=== PATIENT | male | born 1965 | race African-American/Black ===

== ENCOUNTER 2018-09-26 04:41 | Inpatient (IN) ==
[2018-09-26] MEDS ORDERED: ceFAZolin 2 GM Premix Inj 2 GM/50 ML PIGGYBACK IV.SIG ONE (04:46)
[2018-09-26 05:02] LABS: Baso % (Auto) 0.4 % (0.0-2.0); Eos # (Auto) 0.1 th/mm3 (0.0-0.4); Hematocrit 38.1 % (39.0-51.0); Hemoglobin 12.9 gm/dL (13.0-17.0); Lymph # (Auto) 1.9 th/mm3 (1.0-4.8); Lymph % (Auto) 17.3 % (9.0-44.0); Mean Corpuscular HGB Conc 33.9 % (32.0-36.0); Mean Corpuscular Hemoglobin 28.5 pg (27.0-34.0); Mean Platelet Volume 8.2 fL (7.0-11.0); Mono # (Auto) 0.7 th/mm3 (0.0-0.9); Mono % (Auto) 5.9 % (0.0-8.0); Neut # (Auto) 8.4 th/mm3 (1.8-7.7); Neut % (Auto) 75.4 % (16.0-70.0); Platelet Count 224 th/mm3 (150-450); Red Blood Count 4.54 mil/mm3 (4.50-5.90); Red Cell Distribution Width 14.6 % (11.6-17.2); White Blood Count 11.1 th/mm3 (4.0-11.0)
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
[2018-09-26 05:21] LABS: Activated Partial Thrombo Time 21.1 sec (23.4-31.7); INR 1.2 Ratio; Prothrombin Time 11.7 sec (9.8-11.6)
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
[2018-09-26] MEDS ORDERED: Bisacodyl 10 MG Supp RECTAL PRN (05:39)
[2018-09-26] MEDS ORDERED: Morphine Sulfate Inj 2 MG/ML Vial IV.PUSH PRN (05:39)
[2018-09-26] MEDS ORDERED: Naloxone Inj 0.4 MG/ML Vial IV.PUSH PRN (05:39)
[2018-09-26] MEDS ORDERED: Post-op Orders (for Pharmacy) OTHER ONE (05:39)
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
[2018-09-26] MEDS: Sod Chloride 0.9% Inj 1,000 ML IV.CONT SCH ×2 (06:06→18:26)
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
[2018-09-26] MEDS: Famotidine 20 MG Tablet PO SCH ×2 (09:46→21:13)
[2018-09-26] MEDS: Senna/Docusate Sodium 8.6/50 MG Tablet PO SCH ×2 (09:47→21:13)
[2018-09-26] MEDS ORDERED: Sodium Chlor 0.9% Inj 500 ML IV.CONT ONE (10:45)
[2018-09-26] MEDS ORDERED: Metoprolol Tartrate 25 MG Tablet PO ONE (10:45)
[2018-09-26] MEDS ORDERED: Chlorhexidine Gluconate 2% 1 Pack (2 Cloths) TOPICAL ONE (10:45)
[2018-09-26] MEDS ORDERED: ceFAZolin 1 GM Premix Inj 2 GM/100 ML PIGGYBACK IV.SIG ONE (11:02)
[2018-09-26] MEDS ORDERED: Ketamine Inj 50 MG/5 ML Syringe IV.PUSH ONE (11:41)
[2018-09-26] MEDS ORDERED: Phenylephrine/NS 1000 MCG/10ML Syringe IV.PUSH ONE (12:12)
[2018-09-26] MEDS ORDERED: Neostigmine Inj 5 MG/5 ML Syringe IV.PUSH ONE (12:12)
[2018-09-26] MEDS ORDERED: Glycopyrrolate Inj 1 MG/5 ML Syringe IV.PUSH ONE (12:12)
[2018-09-26] MEDS ORDERED: Ketorolac Inj 30 MG/ML (IVP) Vial IV.PUSH ONE (12:12)
[2018-09-26] MEDS ORDERED: Lidocaine PF 1% Inj 5 ML Syringe OTHER ONE (12:12)
[2018-09-26] MEDS ORDERED: Albumin Human 25% Inj 50 ML IV.SIG ONE (12:55)
[2018-09-26] MEDS ORDERED: Sodium Chlor 0.9% Inj 50 ML ONE (12:55)
[2018-09-26] MEDS ORDERED: ceFAZolin 1 GM Premix Inj 1 GM/50 ML PIGGYBACK IV.SIG SCH (13:00)
[2018-09-26] MEDS ORDERED: Post-op Orders (for Pharmacy) OTHER STA (14:56)
[2018-09-26] MEDS ORDERED: Morphine Inj 4 MG/ML Vial IV.PUSH PRN (14:56)
[2018-09-26] MEDS ORDERED: ceFAZolin Inj 2,000 MG in Sodium Chlor 0.9% Inj 80 ML IV.SIG SCH (15:00)
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
[2018-09-26] MEDS ORDERED: fentaNYL Citrate Inj 100 MCG/2 ML Ampul ONE (16:02)
[2018-09-26] MEDS ORDERED: *Meperidine Inj 25 MG/ML Vial PERIprocedural Use ONLY ONE (16:28)
[2018-09-26] MEDS: Ketorolac Inj 30 MG/ML (IVP) Vial IV.PUSH SCH ×2 (17:28→22:44)
[2018-09-26] MEDS: Calcium/Vitamin D 250/125 MG Tablet PO SCH (17:50)
--- NOTE | 2018-09-26 19:29 | XR ---
EXAM DATE: 09/26/2018 7:15 PM EST AGE/SEX: 52 years / Male INDICATIONS: Surgical repair, left ankle. CLINICAL DATA: This is the patient's initial encounter. Patient reports that signs and symptoms have been present for 1 day and indicates a pain score of Nonresponsive. MEDICAL/SURGICAL HISTORY: Non-responsive. Non-responsive. COMPAR[place]: [facility] [place]/O [place], 09/26/2018. . FINDINGS: There is a very comminuted intra-articular fracture of the distal tibia again noted status post exter nal fixation. Main fracture fragments are in near-anatomic alignment. CONCLUSION: External fixation of the comminuted distal tibia fracture. Near-anatomic alignment of the main fracture fragments. Electronically signed by: Bharat Segura MD 09/26/2018 7:27 PM EST
--- NOTE | 2018-09-26 19:30 | XR ---
EXAM DATE: 09/26/2018 7:15 PM EST AGE/SEX: 52 years / Male INDICATIONS: Surgical repair. CLINICAL DATA: This is the patient's initial encounter. Patient reports that signs and symptoms have been present for 1 day and indicates a pain score of Nonresponsive. MEDICAL/SURGICAL HISTORY: Non-responsive. Non-responsive. COMPARISON: [facility] [place] [place] 2V, 09/26/[place]. . FINDINGS: Interim screw and plate fixation of the mid shaft fractures of the left radius and ulna. Also interim screw and plate fixation of the distal ulnar fracture. Alignment of all 3 fractures is near-anatomic . No evidence of an acute complication. CONCLUSION: Screw plate fixation of mid shaft fracture of the radius and mid shaft and distal shaft fracturing of the ulna, all in near-anatomic alignment. Electronically signed by: Bharat Segura MD 09/26/2018 7:28 PM EST
[2018-09-26] MEDS: ceFAZolin 2 GM Premix Inj 2 GM/50 ML PIGGYBACK IV.SIG SCH (21:12)
[2018-09-26] MEDS: Gentamicin/NS 80 mg Premix 100 ML IV.SIG SCH (21:12)
[2018-09-27 03:54] LABS: Hematocrit 27.1 % (39.0-51.0); Hemoglobin 9.2 gm/dL (13.0-17.0); Lymph # (Auto) 0.6 th/mm3 (1.0-4.8); Lymph % (Auto) 9.8 % (9.0-44.0); Mean Corpuscular HGB Conc 34.1 % (32.0-36.0); Mean Corpuscular Hemoglobin 28.9 pg (27.0-34.0); Mean Corpuscular Volume 84.6 fL (80.0-100.0); Mean Platelet Volume 8.2 fL (7.0-11.0); Mono # (Auto) 0.4 th/mm3 (0.0-0.9); Mono % (Auto) 7.1 % (0.0-8.0); Neut # (Auto) 5.2 th/mm3 (1.8-7.7); Neut % (Auto) 83.1 % (16.0-70.0); Platelet Count 192 th/mm3 (150-450); Red Cell Distribution Width 14.6 % (11.6-17.2); White Blood Count 6.2 th/mm3 (4.0-11.0)
[2018-09-27] MEDS: Sod Chloride 0.9% Inj 1,000 ML IV.CONT SCH (04:20)
[2018-09-27 04:21] LABS: Calcium 7.5 mg/dL (8.5-10.1); Carbon Dioxide 25.8 meq/L (21.0-32.0); Potassium 4.1 meq/L (3.5-5.1)
[2018-09-27] MEDS: ceFAZolin 2 GM Premix Inj 2 GM/50 ML PIGGYBACK IV.SIG SCH ×3 (06:30→20:42)
[2018-09-27] MEDS: Ketorolac Inj 30 MG/ML (IVP) Vial IV.PUSH SCH ×3 (06:31→23:45)
[2018-09-27] MEDS: Gentamicin/NS 80 mg Premix 100 ML IV.SIG SCH ×3 (06:31→21:19)
[2018-09-27] MEDS: Senna/Docusate Sodium 8.6/50 MG Tablet PO SCH ×2 (08:15→20:42)
[2018-09-27] MEDS: Verapamil SR 240 MG Tablet PO SCH ×2 (08:15→11:00)
[2018-09-27] MEDS: hydroCHLOROthiazide 25 MG Tablet PO SCH (08:15)
[2018-09-27] MEDS: Calcium/Vitamin D 250/125 MG Tablet PO SCH ×3 (08:15→18:23)
[2018-09-27] MEDS: Famotidine 20 MG Tablet PO SCH ×2 (08:15→20:42)
[2018-09-27] MEDS: VERAPAMIL 240 MG PO SCH (11:12)
[2018-09-27] MEDS: Enoxaparin Inj 30 MG/0.3 ML Syringe SQ SCH ×2 (11:12→23:47)
[2018-09-27] MEDS: Lidocaine 5% Patch T-DERMAL SCH (11:15)
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
[2018-09-27] MEDS ORDERED: Rivaroxaban 10 MG Tablet PO SCH (15:00)
--- NOTE | 2018-09-27 15:13 | P.PNOP ---
Subjective Interval history: Patient c/o left sided rib pain. LUE and LLE pain is controlled. NAD. Physical Exam Vital signs: Vital Signs 09/26/18 15:50 09/26/18 16:00 09/26/18 16:15 Temperature 97 F L Pulse Rate 72 73 76 Respiratory Rate 15 14 20 Blood Pressure 121/61 112/73 133/80 Pulse Oximetry 98 98 98 09/26/18 16:30 09/26/18 16:40 09/26/18 17:15 Temperature 97.5 F L 98.1 F Pulse Rate 74 80 79 Respiratory Rate 18 17 16 Blood Pressure 132/85 130/81 129/78 Pulse Oximetry 96 100 99 09/26/18 20:27 09/26/18 22:38 09/26/18 23:44 Temperature 97.5 F L 98.9 F Pulse Rate 85 98 H Respiratory Rate 16 17 Blood Pressure 94/59 L 116/81 Pulse Oximetry 97 96 97 09/27/18 04:28 09/27/18 08:00 09/27/18 11:15 Temperature 98.2 F 98.2 F Pulse Rate 92 H 92 H Respiratory Rate 17 20 18 Blood Pressure 114/67 144/64 H Pulse Oximetry 97 98 09/27/18 12:00 Temperature 98.2 F Pulse Rate 100 H Respiratory Rate 20 Blood Pressure 105/52 L Pulse Oximetry 99 Intake & Output 09/26/18 09/27/18 09/27/18 18:59 06:59 18:59 Intake Total 2750 / 2750 2240 / 2240 400 / 400 Output Total 1650 / 1650 725 / 725 Balance 1100 / 1100 1515 / 1515 400 / 400 Weight 129.6 kg Intake: IV 1100 / 1100 1250 / 1250 400 / 400 NS Inj 1,000 ML @ 100 mls/hr IV 1000 / 1000 1000 / 1000 200 / 200 .CONT .Q10H [facility] Rx#:[id number] Ofirmev Inj 1,000 mg In 100 ml 100 / 100 100 / 100 @ 400 mls/hr IV.SIG Q6H [facility] Rx# :[id number] Gentamicin/NS 80 mg Premix 100 100 / 100 100 / 100 ML @ 200 mls/hr IV.SIG Q8H [facility] Rx#:[id number] Ancef 2 GM Premix Inj 2 gm In 50 / 50 100 / 100 50 ml @ 100 mls/hr IV.SIG Q8H [facility] Rx#:[id number] Oral 990 / 990 Anesthesia Amount 1650 / 1650 Output: Urine 725 / 725 Estimated Blood Loss 1650 / 1650 Other: # Bowel Movements 0 Narrative: LUE posterior splint and sling in place good movement of digits + sensation LLE ex fix intact moderate drainage to the anterior pin good movement of toes + sensation 2+ dorsalis pedis pulses Left ribs tenderness with direct palpation skin intact Results - Labs CBC & Chem 7: 09/27/18 03:36 09/27/18 03:36 Laboratory Results - last 24 hr 09/27/18 09/27/18 03:36 03:36 WBC 6.2 RBC 3.20 L Hgb 9.2 L D Hct 27.1 L MCV 84.6 MCH 28.9 MCHC 34.1 RDW 14.6 Plt Count 192 MPV 8.2 Neut % (Auto) 83.1 H Lymph % (Auto) 9.8 [place] % (Auto) 7.1 Eos % (Auto) 0.0 Baso % (Auto) 0.0 Neut # (Auto) 5.2 Lymph # (Auto) 0.6 L [place] # (Auto) 0.4 Eos # (Auto) 0.0 Baso # (Auto) 0.0 WBC Differential . Differential Comment Auto diff final Sodium 137 Potassium 4.1 Chloride 104 Carbon Dioxide 25.8 Anion Gap 7 BUN 16 Creatinine 1.40 H Estimated GFR 64 L Random Glucose 117 H Calcium 7.5 L - Imaging Impressions Ankle X-Ray 09/26/18 00:00 CONCLUSION: External fixation of the comminuted distal tibia fracture. Near- anatomic alignment of the main fracture fragments. Forearm X-Ray 09/26/18 00:00 CONCLUSION: Screw plate fixation of mid shaft fracture of the radius and mid shaft and distal shaft fracturing of the ulna, all in near-anatomic alignment. Assessment and Plan - Assessment and Plan Patient is postop day #1 status post closed reduction and external fixation left distal tibia and fibula fractures, open reduction internal fixation left radius and ulna shaft fractures, and irrigation and debridement with open reduction internal fixation left ulna styloid fractures Elevate left foot and left arm Physical therapy: Nonweightbearing left arm and left foot SCD, Serene Ureña Will need ORIF left distal tibia/fibula when swelling has improved Monitor.
--- NOTE | 2018-09-27 17:30 | ECG ---
Date Performed: 09/26/2018 Time Performed: 10:35:50 PTAGE: 52 years EKG: Sinus rhythm NONSPECIFIC ST ELEVATION BORDERLINE ECG INTERPRETATION BASED ON A DEFAULT AGE OF 38 YEARS NO PREVIOUS TRACING DOCTOR: Liliana Castillo Interpretating Date/Time 09/27/2018 17:24:23
[2018-09-28] MEDS: ceFAZolin 2 GM Premix Inj 2 GM/50 ML PIGGYBACK IV.SIG SCH ×2 (04:56→12:44)
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
[2018-09-28] MEDS: Gentamicin/NS 80 mg Premix 100 ML IV.SIG SCH ×2 (06:11→13:35)
[2018-09-28] MEDS: Ketorolac Inj 30 MG/ML (IVP) Vial IV.PUSH SCH (06:11)
[2018-09-28] MEDS: Calcium/Vitamin D 250/125 MG Tablet PO SCH ×3 (08:09→17:33)
[2018-09-28] MEDS: Lidocaine 5% Patch T-DERMAL SCH (08:10)
[2018-09-28] MEDS: Famotidine 20 MG Tablet PO SCH ×2 (08:10→20:37)
[2018-09-28] MEDS: Senna/Docusate Sodium 8.6/50 MG Tablet PO SCH ×2 (08:11→20:37)
[2018-09-28 08:35] LABS: Hematocrit 24.1 % (39.0-51.0); Hemoglobin 8.2 gm/dL (13.0-17.0)
[2018-09-28 10:36] LABS: Calcium 7.7 mg/dL (8.5-10.1); Potassium 3.8 meq/L (3.5-5.1)
[2018-09-28] MEDS: hydroCHLOROthiazide 25 MG Tablet PO SCH (11:22)
[2018-09-28] MEDS: HYDROmorphone PF Inj 0.5 MG/0.5 ML Syringe IV.PUSH PRN ×3 (12:43→20:38)
[2018-09-28] MEDS: Enoxaparin Inj 30 MG/0.3 ML Syringe SQ SCH ×2 (12:44→22:36)
[2018-09-28] MEDS: VERAPAMIL 240 MG PO SCH ×2 (12:44→16:20)
[2018-09-28] MEDS: Gabapentin 300 MG Capsule PO SCH ×2 (12:45→17:33)
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
[2018-09-28] MEDS: Sod Chloride 0.9% Inj 1,000 ML IV.CONT SCH ×2 (13:34→23:32)
--- NOTE | 2018-09-28 19:41 | P.PNOP ---
Subjective Interval history: The patient is comfortable. The therapist reports that he was able to get out of bed yesterday. However, today when they attempted to get him out of bed he was having difficulty balancing on the right leg and he was having intent to put more weight through the external fixator which the therapist was holding and therefore they did not get up to the chair. Physical Exam Vital signs: Vital Signs 09/27/18 20:00 09/27/18 23:50 09/28/18 00:00 Temperature 98.0 F Pulse Rate 82 89 89 Respiratory Rate 19 Blood Pressure 107/57 L Pulse Oximetry 92 L 92 L 09/28/18 04:10 09/28/18 04:15 09/28/18 04:20 Temperature 98.1 F Pulse Rate 84 86 Respiratory Rate 18 Blood Pressure 104/57 L Pulse Oximetry 88 L 93 L 09/28/18 08:00 09/28/18 10:48 09/28/18 11:20 Temperature 98.4 F Pulse Rate 103 H Respiratory Rate 18 18 16 Blood Pressure 107/57 L Pulse Oximetry 96 09/28/18 12:00 09/28/18 13:34 09/28/18 16:27 Temperature 98.4 F 98.5 F Pulse Rate 105 H 100 H Respiratory Rate 20 16 18 Blood Pressure 138/73 131/61 Pulse Oximetry 97 09/28/18 17:30 09/28/18 17:33 Temperature Pulse Rate Respiratory Rate 18 18 Blood Pressure Pulse Oximetry Intake & Output 09/28/18 09/28/18 09/29/18 06:59 18:59 06:59 Intake Total 1900 / 1900 1130 / 1130 Output Total 500 / 500 Balance 1900 / 1900 630 / 630 Weight 129.6 kg Intake: IV 1300 / 1300 150 / 150 LR 1000 mL Inj 1,000 ML @ 30 1000 / 1000 mls/hr IV.CONT .Q24H [facility] Rx#: [id number] Gentamicin/NS 80 mg Premix 100 200 / 200 100 / 100 ML @ 200 mls/hr IV.SIG Q8H [facility] Rx#:[id number] Ancef 2 GM Premix Inj 2 gm In 100 / 100 50 / 50 50 ml @ 100 mls/hr IV.SIG Q8H [facility] Rx#:[id number] Oral 600 / 600 980 / 980 Output: Urine 500 / 500 Other: # Voids 3 2 Date of Last Bowel Movement 09/26/18 09/26/18 # Bowel Movements 0 Narrative: Left lower extremity with external fixator in place. Dressings appear clean. Left upper extremity splint dressing in place. Motor sensory neurologic examination intact both extremities. Results - Labs CBC & Chem 7: 09/28/18 07:47 09/28/18 09:50 Laboratory Results - last 24 hr 09/28/18 09/28/18 07:47 09:50 Hgb 8.2 L Hct 24.1 L Sodium 136 Potassium 3.8 Chloride 103 Carbon Dioxide 27.0 Anion Gap 6 BUN 36 H Creatinine 1.62 H Estimated GFR 54 L Random Glucose 104 Calcium 7.7 L - Imaging Impressions Chest X-Ray 09/28/18 00:00 CONCLUSION: Basilar atelectasis. Assessment and Plan - Assessment and Plan Patient is postop day #2 status post closed reduction and external fixation left distal tibia and fibula fractures, open reduction internal fixation left radius and ulna shaft fractures, and irrigation and debridement with open reduction internal fixation left ulna styloid fractures Elevate left foot and left arm Physical therapy: Nonweightbearing left arm and left foot DEMOND HUBBARD Xarelto Will need ORIF left distal tibia/fibula when swelling is improved Monitor.
[2018-09-29] MEDS: HYDROmorphone PF Inj 0.5 MG/0.5 ML Syringe IV.PUSH PRN ×3 (04:19→12:59)
--- NOTE | 2018-09-29 06:41 | P.PNOP ---
Subjective Interval history: POD 3 s/p ORIF left BBFA s/p exfix left ankle doing well. pain controlled. no new complaints. Physical Exam Vital signs: Vital Signs 09/28/18 08:00 09/28/18 10:48 09/28/18 11:20 Temperature 98.4 F Pulse Rate 103 H Respiratory Rate 18 18 16 Blood Pressure 107/57 L Pulse Oximetry 96 09/28/18 12:00 09/28/18 13:34 09/28/18 16:27 Temperature 98.4 F 98.5 F Pulse Rate 105 H 100 H Respiratory Rate 20 16 18 Blood Pressure 138/73 131/61 Pulse Oximetry 97 09/28/18 17:30 09/28/18 17:33 09/28/18 19:15 Temperature 98.7 F Pulse Rate 104 H Respiratory Rate 18 18 19 Blood Pressure 120/62 Pulse Oximetry 98 09/28/18 20:00 09/28/18 20:14 09/28/18 23:25 Temperature 98.8 F Pulse Rate 106 H 107 H Respiratory Rate 19 18 Blood Pressure 99/57 L Pulse Oximetry 97 96 09/29/18 00:00 09/29/18 04:00 09/29/18 04:15 Temperature 98.9 F Pulse Rate 108 H 107 H 109 H Respiratory Rate 18 Blood Pressure 130/62 Pulse Oximetry 98 Intake & Output 09/28/18 09/28/18 09/29/18 06:59 18:59 06:59 Intake Total 1900 / 1900 1130 / 1130 1000 / 1000 Output Total 500 / 500 Balance 1900 / 1900 630 / 630 1000 / 1000 Weight 129.6 kg Intake: IV 1300 / 1300 150 / 150 1000 / 1000 LR 1000 mL Inj 1,000 ML @ 30 1000 / 1000 mls/hr IV.CONT .Q24H [facility] Rx#: [id number] NS Inj 1,000 ML @ 100 mls/hr IV 1000 / 1000 .CONT .Q10H [facility] Rx#:[id number] Gentamicin/NS 80 mg Premix 100 200 / 200 100 / 100 ML @ 200 mls/hr IV.SIG Q8H [facility] Rx#:[id number] Ancef 2 GM Premix Inj 2 gm In 100 / 100 50 / 50 50 ml @ 100 mls/hr IV.SIG Q8H [facility] Rx#:[id number] Oral 600 / 600 980 / 980 Output: Urine 500 / 500 Other: # Voids 3 2 Date of Last Bowel Movement 09/26/18 09/26/18 09/26/18 # Bowel Movements 0 Narrative: LUE: +long arm splint. intact. NVI to median/ulnar nerve. full extension of wrist and fingers LLE: 3+ swelling of ankle. nvi. +exfix. pin sites clean Results - Labs CBC & Chem 7: 09/28/18 07:47 09/28/18 09:50 Laboratory Results - last 24 hr 09/28/18 09/28/18 07:47 09:50 Hgb 8.2 L Hct 24.1 L Sodium 136 Potassium 3.8 Chloride 103 Carbon Dioxide 27.0 Anion Gap 6 BUN 36 H Creatinine 1.62 H Estimated GFR 54 L Random Glucose 104 Calcium 7.7 L Assessment and Plan - Assessment and Plan 1) Left Radius/Ulna Shaft Fxs and Ulnar Styloid Fx s/p ORIF - POD 3 2) Left Distal Tibia/Fibula Fxs s/p Exfix -elevate left ankle and arm -pin care BID -NWB to LLE and LUE -still too swollen for surgery of left ankle -toradol 15mg Q6H x 3 doses -resume diet -npo after MN -will eval daily for swelling in anticipation for surgery of left ankle.
[2018-09-29] MEDS: Ketorolac Inj 30 MG/ML (IVP) Vial IV.PUSH SCH ×3 (07:17→22:10)
[2018-09-29] MEDS: Lidocaine 5% Patch T-DERMAL SCH (08:58)
[2018-09-29] MEDS: Senna/Docusate Sodium 8.6/50 MG Tablet PO SCH ×2 (09:00→22:10)
[2018-09-29] MEDS: hydroCHLOROthiazide 25 MG Tablet PO SCH (09:00)
[2018-09-29] MEDS: Calcium/Vitamin D 250/125 MG Tablet PO SCH ×3 (09:00→17:07)
[2018-09-29] MEDS: Gabapentin 300 MG Capsule PO SCH ×3 (09:00→17:07)
[2018-09-29] MEDS: Famotidine 20 MG Tablet PO SCH ×2 (09:00→22:11)
[2018-09-29] MEDS: Sod Chloride 0.9% Inj 1,000 ML IV.CONT SCH ×2 (09:02→22:11)
[2018-09-29 11:11] LABS: Hemoglobin 6.4 gm/dL (13.0-17.0)
[2018-09-29] MEDS: Enoxaparin Inj 30 MG/0.3 ML Syringe SQ SCH ×2 (11:18→22:10)
[2018-09-29 11:45] LABS: Anion Gap 7 meq/L (5-15); Blood Urea Nitrogen 21 mg/dL (7-18); Calcium 6.8 mg/dL (8.5-10.1); Carbon Dioxide 25.6 meq/L (21.0-32.0); Chloride 106 meq/L (98-107); Glomerular Filtration Rate Greater Than 89 mL/min (>89); Glucose,Random 104 mg/dL (74-106); Potassium 3.3 meq/L (3.5-5.1); Sodium 139 meq/L (136-145)
[2018-09-29 11:58] LABS: Albumin 2.5 g/dL (3.4-5.0)
[2018-09-29] MEDS ORDERED: Sodium Chlor 0.9% Inj 250 ML IV.SIG SCH (12:00)
[2018-09-29] MEDS: VERAPAMIL 240 MG PO SCH (12:14)
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
[2018-09-29] MEDS: oxyCODONE/Acetaminophen 10/325 Tablet PO PRN ×2 (17:07→22:12)
[2018-09-30 02:46] LABS: Hematocrit 25.8 % (39.0-51.0); Hemoglobin 8.6 gm/dL (13.0-17.0)
[2018-09-30] MEDS: oxyCODONE/Acetaminophen 10/325 Tablet PO PRN ×2 (04:00→14:11)
--- NOTE | 2018-09-30 06:27 | P.PNOP ---
Subjective Interval history: POD 4 s/p ORIF left BBFA s/p exfix left tibial pilon fx doing well. pain controlled. no changes Physical Exam Vital signs: Vital Signs 09/29/18 08:00 09/29/18 08:27 09/29/18 12:00 Temperature 100.3 F H 99.4 F Pulse Rate 112 H 57 L 116 H Respiratory Rate 18 18 18 Blood Pressure 135/61 129/79 Pulse Oximetry 99 92 L 100 09/29/18 12:57 09/29/18 14:02 09/29/18 14:18 Temperature 99.4 F 99.3 F Pulse Rate 113 H 115 H 99 H Respiratory Rate 18 14 14 Blood Pressure 120/60 140/70 Pulse Oximetry 09/29/18 16:57 09/29/18 17:13 09/29/18 20:00 Temperature 98.9 F 98.9 F 98.2 F Pulse Rate 113 H 101 H 104 H Respiratory Rate 20 16 20 Blood Pressure 127/66 111/61 140/63 Pulse Oximetry 99 09/29/18 20:03 09/29/18 23:49 09/30/18 00:00 Temperature 97.5 F L Pulse Rate 103 H 98 H 96 H Respiratory Rate 18 Blood Pressure 124/63 Pulse Oximetry 99 09/30/18 03:55 09/30/18 06:06 Temperature 98.1 F Pulse Rate 101 H 100 H Respiratory Rate 17 Blood Pressure 143/78 H Pulse Oximetry 100 Intake & Output 09/29/18 09/29/18 09/30/18 06:59 18:59 06:59 Intake Total 1480 / 1480 1400 / 1400 450 / 450 Output Total 1050 / 1050 Balance 1480 / 1480 350 / 350 450 / 450 Weight 129.6 kg Intake: IV 1000 / 1000 1000 / 1000 50 / 50 NS Inj 1,000 ML @ 50 mls/hr IV. 1000 / 1000 1000 / 1000 50 / 50 CONT .Q20H [facility] Rx#:[id number] Oral 480 / 480 Intake (Blood Product) Amt 400 / 400 400 / 400 Rbc As-3 Leukoreduced Unit 0 / 0 400 / 400 [id number] Rbc As-3 Leukoreduced Unit 400 / 400 [id number] Output: Urine 1050 / 1050 Other: # Voids 3 Date of Last Bowel Movement 12/05/0709/26/18 09/26/18 # Bowel Movements 0 Narrative: LUE: +long arm splint. intact. NVI LLE: 2+ swelling of ankle. pin sites clean. nvi Results - Labs CBC & Chem 7: 09/30/18 02:35 09/29/18 10:37 Laboratory Results - last 24 hr 09/29/18 09/29/18 09/29/18 10:37 10:37 11:54 Hgb 6.4 L* Hct 19.0 L* Sodium 139 Potassium 3.3 L Chloride 106 Carbon Dioxide 25.6 Anion Gap 7 BUN 21 H Creatinine 0.98 Estimated GFR Greater than 89 Random Glucose 104 Calcium 6.8 L* D Calcium Adj for Albumin 8.0 L Albumin 2.5 L Blood Type O Positive Antibody Screen Negative MTS Gel Crossmatch See Detail 09/30/18 02:35 Hgb 8.6 L D Hct 25.8 L Sodium Potassium Chloride Carbon Dioxide Anion Gap BUN Creatinine Estimated GFR Random Glucose Calcium Calcium Adj for Albumin Albumin Blood Type Antibody Screen MTS Gel Crossmatch Assessment and Plan - Assessment and Plan 1) Left Radius/Ulna Shaft Fxs and Ulnar Styloid Fx s/p ORIF - POD 4 2) Left Distal Tibia/Fibula Fxs s/p Exfix -elevate left ankle and arm -pin care BID -NWB to LLE and LUE -still too swollen for surgery of left ankle -toradol 15mg Q6H x 3 doses -resume diet -npo after MN -hold lovenox after AM dose -will eval daily for swelling in anticipation for surgery of left ankle.
[2018-09-30] MEDS: Ketorolac Inj 30 MG/ML (IVP) Vial IV.PUSH SCH ×3 (07:39→23:03)
[2018-09-30] MEDS: Lidocaine 5% Patch T-DERMAL SCH (09:32)
[2018-09-30] MEDS: Famotidine 20 MG Tablet PO SCH ×2 (09:34→20:33)
[2018-09-30] MEDS: Gabapentin 300 MG Capsule PO SCH ×3 (09:34→19:13)
[2018-09-30] MEDS: Calcium/Vitamin D 250/125 MG Tablet PO SCH ×3 (09:34→19:14)
[2018-09-30] MEDS: hydroCHLOROthiazide 25 MG Tablet PO SCH (09:34)
[2018-09-30] MEDS: Senna/Docusate Sodium 8.6/50 MG Tablet PO SCH ×2 (09:34→20:32)
[2018-09-30] MEDS: Enoxaparin Inj 30 MG/0.3 ML Syringe SQ SCH (10:30)
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
[2018-09-30] MEDS: VERAPAMIL 240 MG PO SCH (11:20)
[2018-10-01] MEDS: oxyCODONE/Acetaminophen 10/325 Tablet PO PRN ×6 (00:19→23:38)
--- NOTE | 2018-10-01 06:41 | P.PNOP ---
Subjective Interval history: POD 5 s/p ORIF left BBFA s/p exfix left distal tibfib doing well. no changes Physical Exam Vital signs: Vital Signs 09/30/18 08:00 09/30/18 08:09 09/30/18 08:44 Temperature 98.2 F Pulse Rate 104 H 102 H Respiratory Rate 20 18 16 Blood Pressure 148/73 H Pulse Oximetry 100 98 09/30/18 12:00 09/30/18 12:27 09/30/18 16:00 Temperature 98.3 F 98.4 F Pulse Rate 106 H 107 H 89 Respiratory Rate 18 18 18 Blood Pressure 150/79 H 126/68 Pulse Oximetry 100 92 L 09/30/18 19:13 09/30/18 19:17 09/30/18 20:07 Temperature 98.6 F Pulse Rate 89 84 Respiratory Rate 18 18 15 Blood Pressure 127/67 Pulse Oximetry 97 94 L 09/30/18 20:30 09/30/18 23:28 10/01/18 02:46 Temperature 98.6 F Pulse Rate 83 94 H Respiratory Rate 18 18 Blood Pressure 131/62 Pulse Oximetry 96 10/01/18 03:55 Temperature 98.5 F Pulse Rate 94 H Respiratory Rate 18 Blood Pressure 135/77 Pulse Oximetry 96 Intake & Output 09/30/18 09/30/18 10/01/18 06:59 18:59 06:59 Intake Total 450 / 450 0 / 0 Output Total 500 / 500 450 / 450 Balance -50 / -50 -450 / -450 Weight 135.3 kg 134.6 kg Intake: IV 50 / 50 NS Inj 1,000 ML @ 50 mls/hr IV. 50 / 50 CONT .Q20H [facility] Rx#:[id number] Oral 0 / 0 Intake (Blood Product) Amt 400 / 400 Rbc As-3 Leukoreduced Unit 400 / 400 [id number] Output: Urine 500 / 500 450 / 450 Other: Date of Last Bowel Movement 09/26/18 # Bowel Movements 0 Narrative: LLE: 2+ swelling. exfix in place. pin sites clean . nvi LUE:+splint. intact. nvi Results - Labs CBC & Chem 7: 09/30/18 02:35 09/29/18 10:37 Assessment and Plan - Assessment and Plan 1) Left Radius/Ulna Shaft Fxs and Ulnar Styloid Fx s/p ORIF - POD 5 2) Left Distal Tibia/Fibula Fxs s/p Exfix -elevate left ankle and arm -pin care BID -NWB to LLE and LUE -still too swollen for surgery of left ankle -toradol 15mg Q8H x 6 doses -resume diet -npo after MN on -lovenox 30mg Q12hr. hold after AM dose -NPO after MN on -will eval swelling for possible surgery Saturday
[2018-10-01] MEDS: HYDROmorphone PF Inj 0.5 MG/0.5 ML Syringe IV.PUSH PRN (08:11)
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
[2018-10-01] MEDS: Senna/Docusate Sodium 8.6/50 MG Tablet PO SCH ×2 (10:27→21:22)
[2018-10-01] MEDS: Famotidine 20 MG Tablet PO SCH ×2 (10:27→21:22)
[2018-10-01] MEDS: hydroCHLOROthiazide 25 MG Tablet PO SCH (10:27)
[2018-10-01] MEDS: Calcium/Vitamin D 250/125 MG Tablet PO SCH ×3 (10:27→19:10)
[2018-10-01] MEDS: Gabapentin 300 MG Capsule PO SCH ×3 (10:27→19:11)
[2018-10-01] MEDS: Lidocaine 5% Patch T-DERMAL SCH (10:28)
[2018-10-01] MEDS: Enoxaparin Inj 30 MG/0.3 ML Syringe SQ SCH ×2 (10:30→21:22)
[2018-10-01] MEDS: VERAPAMIL 240 MG PO SCH (13:15)
[2018-10-02 05:27] LABS: Baso % (Auto) 0.2 % (0.0-2.0); Eos # (Auto) 0.3 th/mm3 (0.0-0.4); Eos % (Auto) 4.7 % (0.0-4.0); Hematocrit 25.3 % (39.0-51.0); Hemoglobin 8.7 gm/dL (13.0-17.0); Lymph # (Auto) 1.1 th/mm3 (1.0-4.8); Lymph % (Auto) 18.3 % (9.0-44.0); Mean Corpuscular HGB Conc 34.6 % (32.0-36.0); Mean Corpuscular Hemoglobin 29.2 pg (27.0-34.0); Mean Corpuscular Volume 84.3 fL (80.0-100.0); Mean Platelet Volume 7.6 fL (7.0-11.0); Mono # (Auto) 0.6 th/mm3 (0.0-0.9); Mono % (Auto) 10.2 % (0.0-8.0); Neut # (Auto) 3.9 th/mm3 (1.8-7.7); Neut % (Auto) 66.6 % (16.0-70.0); Platelet Count 244 th/mm3 (150-450); Red Cell Distribution Width 14.6 % (11.6-17.2); White Blood Count 5.8 th/mm3 (4.0-11.0)
[2018-10-02] MEDS: oxyCODONE/Acetaminophen 10/325 Tablet PO PRN ×4 (05:43→22:56)
[2018-10-02 05:57] LABS: Calcium 8.1 mg/dL (8.5-10.1); Carbon Dioxide 33.3 meq/L (21.0-32.0); Potassium 4.3 meq/L (3.5-5.1)
--- NOTE | 2018-10-02 07:00 | P.PNOP ---
Subjective Interval history: POD 6 s/p ORIF left BBFA s/p exfix left distal tibia fx doing well. no changes Physical Exam Vital signs: Vital Signs 10/01/18 08:00 10/01/18 08:41 10/01/18 08:42 Temperature 98 F Pulse Rate 92 H 96 H Respiratory Rate 22 20 18 Blood Pressure 111/78 Pulse Oximetry 98 97 10/01/18 12:00 10/01/18 14:15 10/01/18 16:00 Temperature 98.1 F 97.7 F Pulse Rate 92 H 106 H 107 H Respiratory Rate 20 18 20 Blood Pressure 122/68 102/58 L Pulse Oximetry 96 95 10/01/18 16:40 10/01/18 19:46 10/01/18 20:00 Temperature 98.4 F Pulse Rate 93 H 87 Respiratory Rate 18 18 18 Blood Pressure 121/65 Pulse Oximetry 92 L 95 10/02/18 00:00 10/02/18 04:00 Temperature 98.3 F 99.5 F Pulse Rate 94 H 99 H Respiratory Rate 18 20 Blood Pressure 124/61 138/68 Pulse Oximetry 100 94 L Intake & Output 10/01/18 10/01/18 10/02/18 06:59 18:59 06:59 Intake Total 0 / 0 860 / 860 Output Total 450 / 450 600 / 600 Balance -450 / -450 260 / 260 Weight 134.6 kg 134.4 kg Intake: Oral 0 / 0 860 / 860 Output: Urine 450 / 450 600 / 600 Other: # Bowel Movements 0 Narrative: LUE: +long arm splint. intact. NVI LLE: 2+ swelling of ankle. exfix in place. pin sites clean Results - Labs CBC & Chem 7: 10/02/18 04:56 10/02/18 04:56 Laboratory Results - last 24 hr 10/02/18 10/02/18 04:56 04:56 WBC 5.8 RBC 3.00 L Hgb 8.7 L Hct 25.3 L MCV 84.3 MCH 29.2 MCHC 34.6 RDW 14.6 Plt Count 244 MPV 7.6 Neut % (Auto) 66.6 Lymph % (Auto) 18.3 Cache % (Auto) 10.2 H Eos % (Auto) 4.7 H Baso % (Auto) 0.2 Neut # (Auto) 3.9 Lymph # (Auto) 1.1 Cache # (Auto) 0.6 Eos # (Auto) 0.3 Baso # (Auto) 0.0 WBC Differential . Differential Comment Auto diff final Sodium 139 Potassium 4.3 Chloride 101 Carbon Dioxide 33.3 H Anion Gap 5 BUN 22 H Creatinine 1.12 Estimated GFR 83 L Random Glucose 94 Calcium 8.1 L - Imaging Impressions Chest X-Ray 10/01/18 00:00 CONCLUSION: Cardiomegaly with mild interstitial edema. Assessment and Plan - Assessment and Plan 1) Left Radius/Ulna Shaft Fxs and Ulnar Styloid Fx s/p ORIF - POD 6 2) Left Distal Tibia/Fibula Fxs s/p Exfix -elevate left ankle and arm -pin care BID -NWB to LLE and LUE -still too swollen for surgery of left ankle -toradol 15mg Q8H x 6 doses -resume diet -npo after MN on -lovenox 30mg Q12hr. hold after AM dose -will eval swelling for possible surgery Saturday
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
[2018-10-02] MEDS: Senna/Docusate Sodium 8.6/50 MG Tablet PO SCH ×2 (09:19→22:56)
[2018-10-02] MEDS: hydroCHLOROthiazide 25 MG Tablet PO SCH (09:20)
[2018-10-02] MEDS: Enoxaparin Inj 30 MG/0.3 ML Syringe SQ SCH (09:20)
[2018-10-02] MEDS: Calcium/Vitamin D 250/125 MG Tablet PO SCH ×3 (09:20→18:00)
[2018-10-02] MEDS: Famotidine 20 MG Tablet PO SCH ×2 (09:20→22:56)
[2018-10-02] MEDS: Gabapentin 300 MG Capsule PO SCH ×3 (09:20→18:00)
[2018-10-02] MEDS: Lidocaine 5% Patch T-DERMAL SCH (09:21)
[2018-10-02] MEDS: VERAPAMIL 240 MG PO SCH (11:57)
[2018-10-03] MEDS: oxyCODONE/Acetaminophen 10/325 Tablet PO PRN ×4 (04:54→23:01)
[2018-10-03] MEDS: Ketorolac Inj 30 MG/ML (IVP) Vial IV.PUSH PRN (05:11)
--- NOTE | 2018-10-03 06:34 | P.PNOP ---
Subjective Interval history: POD 7 s/p ORIF left BBFA s/p left pilon exfix doing well. no changes. Physical Exam Vital signs: Vital Signs 10/02/18 08:00 10/02/18 08:57 10/02/18 12:00 Temperature 97.8 F 98.3 F Pulse Rate 96 H 103 H 103 H Respiratory Rate 18 16 18 Blood Pressure 113/59 L 120/56 L Pulse Oximetry 95 98 95 10/02/18 13:26 10/02/18 16:00 10/02/18 19:20 Temperature 99.5 F 98.4 F Pulse Rate 101 H 108 H 105 H Respiratory Rate 20 18 18 Blood Pressure 117/64 138/84 Pulse Oximetry 95 96 10/02/18 19:23 10/02/18 19:25 10/02/18 23:30 Temperature Pulse Rate 104 H Respiratory Rate 18 17 Blood Pressure Pulse Oximetry 95 10/03/18 00:10 10/03/18 03:35 Temperature 99.1 F 98.1 F Pulse Rate 115 H 111 H Respiratory Rate 17 20 Blood Pressure 151/82 H 146/71 H Pulse Oximetry 92 L 95 Intake & Output 10/02/18 10/02/18 10/03/18 06:59 18:59 06:59 Intake Total 860 / 860 Output Total 600 / 600 Balance 260 / 260 Weight 134.4 kg Intake: Oral 860 / 860 Output: Urine 600 / 600 Other: Date of Last Bowel Movement 09/27/18 09/27/18 Narrative: LUE: +long arm splint. intact. NVI LLE: 2+ swelling of ankle. pin sites clean and dry. intact. nvi Results - Labs CBC & Chem 7: 10/02/18 04:56 10/02/18 04:56 Assessment and Plan - Assessment and Plan 1) Left Radius/Ulna Shaft Fxs and Ulnar Styloid Fx s/p ORIF - POD 7 2) Left Distal Tibia/Fibula Fxs s/p Exfix -elevate left ankle and arm -pin care BID -NWB to LLE and LUE -still too swollen for surgery of left ankle -resume diet -npo after MN on saturday -lovenox 30mg Q12hr. hold after AM dose saturday -will eval swelling for possible surgery saturday
[2018-10-03] MEDS ORDERED: Bisacodyl 10 MG Supp RECTAL ONE (08:15)
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
[2018-10-03] MEDS: Enoxaparin Inj 30 MG/0.3 ML Syringe SQ SCH ×2 (09:20→22:53)
[2018-10-03] MEDS: Senna/Docusate Sodium 8.6/50 MG Tablet PO SCH ×2 (09:20→21:00)
[2018-10-03] MEDS: hydroCHLOROthiazide 25 MG Tablet PO SCH (09:21)
[2018-10-03] MEDS: Lidocaine 5% Patch T-DERMAL SCH (09:21)
[2018-10-03] MEDS: Calcium/Vitamin D 250/125 MG Tablet PO SCH ×3 (09:21→18:34)
[2018-10-03] MEDS: Famotidine 20 MG Tablet PO SCH ×2 (09:21→22:54)
[2018-10-03] MEDS: Gabapentin 300 MG Capsule PO SCH ×3 (09:21→18:34)
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
[2018-10-03] MEDS: VERAPAMIL 240 MG PO SCH (13:46)
[2018-10-04] MEDS: oxyCODONE/Acetaminophen 10/325 Tablet PO PRN ×3 (05:44→17:31)
[2018-10-04] MEDS: Ketorolac Inj 30 MG/ML (IVP) Vial IV.PUSH PRN (05:44)
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
[2018-10-04] MEDS: Enoxaparin Inj 30 MG/0.3 ML Syringe SQ SCH ×2 (09:00→22:36)
[2018-10-04] MEDS: Lidocaine 5% Patch T-DERMAL SCH (09:00)
[2018-10-04] MEDS: Senna/Docusate Sodium 8.6/50 MG Tablet PO SCH ×2 (09:25→22:37)
[2018-10-04] MEDS: Calcium/Vitamin D 250/125 MG Tablet PO SCH ×3 (09:25→17:31)
[2018-10-04] MEDS: hydroCHLOROthiazide 25 MG Tablet PO SCH (09:25)
[2018-10-04] MEDS: Famotidine 20 MG Tablet PO SCH ×2 (09:25→22:37)
[2018-10-04] MEDS: Gabapentin 300 MG Capsule PO SCH ×3 (09:25→17:31)
[2018-10-04] MEDS: VERAPAMIL 240 MG PO SCH (11:00)
[2018-10-05] MEDS: oxyCODONE/Acetaminophen 10/325 Tablet PO PRN ×5 (01:06→22:33)
[2018-10-05 06:39] LABS: Baso % (Auto) 0.3 % (0.0-2.0); Eos # (Auto) 0.2 th/mm3 (0.0-0.4); Eos % (Auto) 2.4 % (0.0-4.0); Hematocrit 24.7 % (39.0-51.0); Hemoglobin 8.3 gm/dL (13.0-17.0); Lymph # (Auto) 1.3 th/mm3 (1.0-4.8); Lymph % (Auto) 16.4 % (9.0-44.0); Mean Corpuscular HGB Conc 33.7 % (32.0-36.0); Mean Corpuscular Hemoglobin 28.8 pg (27.0-34.0); Mean Corpuscular Volume 85.7 fL (80.0-100.0); Mean Platelet Volume 7.7 fL (7.0-11.0); Mono # (Auto) 0.7 th/mm3 (0.0-0.9); Mono % (Auto) 8.4 % (0.0-8.0); Neut # (Auto) 5.7 th/mm3 (1.8-7.7); Neut % (Auto) 72.5 % (16.0-70.0); Platelet Count 335 th/mm3 (150-450); Red Blood Count 2.89 mil/mm3 (4.50-5.90); Red Cell Distribution Width 14.5 % (11.6-17.2); White Blood Count 7.8 th/mm3 (4.0-11.0)
--- NOTE | 2018-10-05 06:48 | P.PNOP ---
Subjective Interval history: Resting comfortably with no new complaints Physical Exam Vital signs: Vital Signs 10/04/18 07:31 10/04/18 10:40 10/04/18 12:39 Temperature 98.7 F 98.3 F Pulse Rate 108 H 112 H Respiratory Rate 17 18 Blood Pressure 129/62 117/64 Pulse Oximetry 95 94 L 100 10/04/18 15:55 10/04/18 19:49 10/04/18 23:35 Temperature 98.9 F 98.0 F 98.7 F Pulse Rate 101 H 99 H 112 H Respiratory Rate 18 19 18 Blood Pressure 97/59 L 106/59 L 149/76 H Pulse Oximetry 100 96 95 10/05/18 03:31 Temperature 97.8 F Pulse Rate 104 H Respiratory Rate 18 Blood Pressure 152/66 H Pulse Oximetry 96 Intake & Output 10/04/18 10/04/18 10/05/18 06:59 18:59 06:59 Intake Total 720 / 720 Output Total 350 / 350 Balance 370 / 370 Weight 132.7 kg Intake: Oral 720 / 720 Output: Urine 350 / 350 Other: Date of Last Bowel Movement 10/03/18 10/03/18 # Bowel Movements 0 Narrative: LUE: +long arm splint. intact. NVI LLE: 2+ swelling of ankle. pin sites clean and dry. intact. nvi Results - Labs CBC & Chem 7: 10/02/18 04:56 10/02/18 04:56 Assessment and Plan - Assessment and Plan 1) Left Radius/Ulna Shaft Fxs and Ulnar Styloid Fx s/p ORIF - POD 8 2) Left Distal Tibia/Fibula Fxs s/p Exfix -elevate left ankle and arm -pin care BID -NWB to LLE and LUE -still too swollen for surgery of left ankle -resume diet -npo after MN on Saturday -lovenox 30mg Q12hr. hold after AM dose Saturday -will eval swelling for possible surgery Saturday
[2018-10-05 07:01] LABS: Carbon Dioxide 29.5 meq/L (21.0-32.0); Potassium 4.2 meq/L (3.5-5.1)
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
[2018-10-05] MEDS: Famotidine 20 MG Tablet PO SCH ×2 (09:23→22:27)
[2018-10-05] MEDS: Calcium/Vitamin D 250/125 MG Tablet PO SCH ×3 (09:23→17:08)
[2018-10-05] MEDS: hydroCHLOROthiazide 25 MG Tablet PO SCH (09:23)
[2018-10-05] MEDS: Senna/Docusate Sodium 8.6/50 MG Tablet PO SCH ×2 (09:23→22:30)
[2018-10-05] MEDS: Gabapentin 300 MG Capsule PO SCH ×3 (09:23→17:09)
[2018-10-05] MEDS: Enoxaparin Inj 30 MG/0.3 ML Syringe SQ SCH ×2 (09:24→22:25)
[2018-10-05] MEDS: VERAPAMIL 240 MG PO SCH (13:28)
[2018-10-05] MEDS: Lidocaine 5% Patch T-DERMAL SCH (17:05)
[2018-10-06] MEDS: oxyCODONE/Acetaminophen 10/325 Tablet PO PRN ×3 (03:56→22:11)
[2018-10-06 04:31] LABS: Activated Partial Thrombo Time 29.4 sec (23.4-31.7); INR 1.3 Ratio; Prothrombin Time 12.7 sec (9.8-11.6)
[2018-10-06] MEDS ORDERED: Chlorhexidine Gluconate 2% 1 Pack (2 Cloths) TOPICAL ONE (05:44)
[2018-10-06] MEDS ORDERED: Sodium Chlor 0.9% Inj 500 ML IV.SIG SCH (06:00)
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
[2018-10-06] MEDS: Gabapentin 300 MG Capsule PO SCH ×3 (09:02→17:36)
[2018-10-06] MEDS: Calcium/Vitamin D 250/125 MG Tablet PO SCH ×3 (09:03→17:36)
[2018-10-06] MEDS: Famotidine 20 MG Tablet PO SCH ×2 (09:03→22:11)
[2018-10-06] MEDS: hydroCHLOROthiazide 25 MG Tablet PO SCH (09:03)
[2018-10-06] MEDS: Senna/Docusate Sodium 8.6/50 MG Tablet PO SCH ×2 (09:03→22:11)
[2018-10-06] MEDS: Enoxaparin Inj 30 MG/0.3 ML Syringe SQ SCH (09:04)
[2018-10-06] MEDS: Lidocaine 5% Patch T-DERMAL SCH (09:04)
[2018-10-06] MEDS: VERAPAMIL 240 MG PO SCH (11:33)
[2018-10-06] MEDS: Ketorolac Inj 30 MG/ML (IVP) Vial IV.PUSH PRN (22:13)
[2018-10-07] MEDS: Ketorolac Inj 30 MG/ML (IVP) Vial IV.PUSH PRN ×2 (06:22→20:14)
[2018-10-07] MEDS: oxyCODONE/Acetaminophen 10/325 Tablet PO PRN ×3 (07:30→17:36)
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
[2018-10-07] MEDS: hydroCHLOROthiazide 25 MG Tablet PO SCH (08:08)
[2018-10-07] MEDS: Calcium/Vitamin D 250/125 MG Tablet PO SCH ×3 (08:08→17:36)
[2018-10-07] MEDS: Gabapentin 300 MG Capsule PO SCH ×3 (08:09→17:36)
[2018-10-07] MEDS: Lidocaine 5% Patch T-DERMAL SCH (08:09)
[2018-10-07] MEDS: Senna/Docusate Sodium 8.6/50 MG Tablet PO SCH ×2 (08:09→20:10)
[2018-10-07] MEDS: Famotidine 20 MG Tablet PO SCH ×2 (08:09→20:11)
[2018-10-07] MEDS ORDERED: fentaNYL Citrate Inj 100 MCG/2 ML Ampul ONE (09:50)
[2018-10-07] MEDS ORDERED: Famotidine PF Inj 20 MG/2 ML Vial ONE (09:50)
[2018-10-07] MEDS ORDERED: ceFAZolin 1 GM Premix Inj 3 GM/150 ML PIGGYBACK IV.SIG ONE (09:51)
[2018-10-07] MEDS: VERAPAMIL 240 MG PO SCH (11:17)
[2018-10-07] MEDS ORDERED: Post-op Orders (for Pharmacy) OTHER STA (12:15)
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
[2018-10-07] MEDS ORDERED: Vancomycin Inj 1 GM/200 ML PIGGYBACK IV.SIG SCH (13:00)
[2018-10-07] MEDS ORDERED: ceFAZolin Inj 2,000 MG in Sodium Chlor 0.9% Inj 80 ML IV.SIG SCH (13:00)
--- NOTE | 2018-10-07 15:25 | XR ---
EXAM DATE: 10/07/2018 3:05 PM EST AGE/SEX: 52 years / Male INDICATIONS: ORIF left ankle fracture. CLINICAL DATA: This is the patient's subsequent encounter. Patient reports that signs and symptoms h ave been present for 2 weeks and indicates a pain score of Nonresponsive. MEDICAL/SURGICAL HISTORY: Non-responsive. Non-responsive. COMPARISON: [facility] – [place], ANKLE LIMITED LEFT 2V, 09/26/2018. . FINDINGS: 6 spot images obtained in the operating room during distal tibia ORIF demonstrates anterior distal ti bial side plate with multiple interlocking screws and a medial distal tibial side plate with multiple interlocking screws. There is improved anatomic alignment. Ankle mortise is intact. CONCLUSION: Improved alignment following distal tibia ORIF. Electronically signed by: Bharat Cheema MD Board Certified Radiologist 10/07/2018 3:23 PM EST
[2018-10-07] MEDS: ceFAZolin 2 GM Premix Inj 2 GM/50 ML PIGGYBACK IV.SIG SCH (17:36)
[2018-10-07] MEDS: Vancomycin Inj 1,000 MG in Sodium Chlor 0.9% Inj 250 ML IV.SIG SCH (22:36)
[2018-10-08] MEDS: ceFAZolin 2 GM Premix Inj 2 GM/50 ML PIGGYBACK IV.SIG SCH ×3 (02:51→17:32)
[2018-10-08] MEDS: oxyCODONE/Acetaminophen 10/325 Tablet PO PRN ×5 (03:30→21:00)
[2018-10-08] MEDS: Ketorolac Inj 30 MG/ML (IVP) Vial IV.PUSH PRN (05:07)
--- NOTE | 2018-10-08 06:50 | P.PNOP ---
Subjective Interval history: POD 1 s/p ORIf left tibial pilon fx POD 12 s/p ORIF left BBFA doing well. states no pain in arm but pain in ankle that is controlled Physical Exam Vital signs: Vital Signs 10/07/18 08:00 10/07/18 12:50 10/07/18 13:05 Temperature 97.6 F 97.8 F Pulse Rate 104 H 98 H 100 H Respiratory Rate 18 20 20 Blood Pressure 103/69 125/77 114/57 L Pulse Oximetry 94 L 94 L 93 L 10/07/18 13:20 10/07/18 13:35 10/07/18 13:50 Temperature 98.0 F 98.0 F Pulse Rate 101 H 105 H 104 H Respiratory Rate 18 18 18 Blood Pressure 93/52 L 136/71 145/69 H Pulse Oximetry 95 95 95 10/07/18 16:00 10/07/18 19:51 10/07/18 20:00 Temperature 97.4 F L 97.7 F Pulse Rate 107 H 104 H 97 H Respiratory Rate 20 18 Blood Pressure 115/82 108/67 Pulse Oximetry 95 94 L 10/07/18 23:00 10/08/18 00:00 10/08/18 03:05 Temperature 97.7 F 97.8 F Pulse Rate 101 H 100 H 114 H Respiratory Rate 18 18 Blood Pressure 124/72 146/58 H Pulse Oximetry 93 L 94 L 10/08/18 04:00 Temperature Pulse Rate 112 H Respiratory Rate Blood Pressure Pulse Oximetry Intake & Output 10/07/18 10/07/18 10/08/18 06:59 18:59 06:59 Intake Total 360 / 360 2100 / 2100 780 / 780 Output Total 1200 / 1200 750 / 750 600 / 600 Balance -840 / -840 1350 / 1350 180 / 180 Weight 131 kg 131 kg Intake: IV 200 / 200 300 / 300 Vancomycin Inj 1,000 MG In NS 250 / 250 Inj 250 ML @ 250 mls/hr IV.SIG Q12H US[facility] Rx#:[id number] Ancef 1 GM Premix Inj 3 gm In 150 / 150 150 ml @ 0 mls/hr IV.SIG .STK- MED ONE Rx#:[id number] Ancef 2 GM Premix Inj 2 gm In 50 / 50 50 / 50 50 ml @ 100 mls/hr IV.SIG Q8H USHA Rx#:[id number] Oral 360 / 360 480 / 480 Anesthesia Amount 1900 / 1900 Output: Urine 1200 / 1200 650 / 650 600 / 600 Estimated Blood Loss 100 / 100 Other: Date of Last Bowel Movement 10/05/18 10/05/18 10/05/18 # Bowel Movements 0 0 Narrative: LUE: +splint. intact. nvi LLE: +splint intact. nvia= Results - Labs CBC & Chem 7: 10/05/18 06:17 10/05/18 06:17 - Imaging Impressions Ankle X-Ray 10/07/18 00:00 CONCLUSION: Improved alignment following distal tibia ORIF. Assessment and Plan - Assessment and Plan 1) Left Radius/Ulna Shaft Fxs and Ulnar Styloid Fx s/p ORIF - POD 12 2) Left Distal Tibia/Fibula Fxs s/p removal of exfix with ORIF - POD 1 -elevate left ankle and arm -NWB to LLE and LUE -maintain splints at all times -ortho surgeries complete at this time -DVT prophylaxis -CM for DC planning. home vs SNF -ok for platform walker with pressure to back of left arm/elbow. no pressure to forearm area
[2018-10-08] MEDS: hydroCHLOROthiazide 25 MG Tablet PO SCH (08:18)
[2018-10-08] MEDS: Famotidine 20 MG Tablet PO SCH ×2 (08:18→21:01)
[2018-10-08] MEDS: Lidocaine 5% Patch T-DERMAL SCH (08:19)
[2018-10-08] MEDS: Gabapentin 300 MG Capsule PO SCH (08:19)
[2018-10-08] MEDS: Calcium/Vitamin D 250/125 MG Tablet PO SCH ×3 (08:19→17:32)
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
[2018-10-08] MEDS: Vancomycin Inj 1,000 MG in Sodium Chlor 0.9% Inj 250 ML IV.SIG SCH (10:00)
[2018-10-08] MEDS: Senna/Docusate Sodium 8.6/50 MG Tablet PO SCH ×2 (11:57→21:02)
[2018-10-08] MEDS: VERAPAMIL 240 MG PO SCH (11:58)
[2018-10-08] MEDS: Gabapentin 400 MG Capsule PO SCH ×2 (11:59→17:32)
[2018-10-08] MEDS: Enoxaparin Inj 30 MG/0.3 ML Syringe SQ SCH ×2 (11:59→21:01)
[2018-10-08 21:28] VITALS: RESP 18
[2018-10-09] MEDS: ceFAZolin 2 GM Premix Inj 2 GM/50 ML PIGGYBACK IV.SIG SCH ×2 (01:18→10:06)
[2018-10-09 05:15] LABS: Baso % (Auto) 0.4 % (0.0-2.0); Eos # (Auto) 0.1 th/mm3 (0.0-0.4); Eos % (Auto) 0.5 % (0.0-4.0); Hemoglobin 7.7 gm/dL (13.0-17.0); Lymph # (Auto) 1.2 th/mm3 (1.0-4.8); Mean Corpuscular HGB Conc 33.5 % (32.0-36.0); Mean Corpuscular Hemoglobin 28.8 pg (27.0-34.0); Mean Corpuscular Volume 85.8 fL (80.0-100.0); Mono # (Auto) 0.7 th/mm3 (0.0-0.9); Mono % (Auto) 6.5 % (0.0-8.0); Neut # (Auto) 8.7 th/mm3 (1.8-7.7); Neut % (Auto) 81.6 % (16.0-70.0); Platelet Count 524 th/mm3 (150-450); Red Blood Count 2.68 mil/mm3 (4.50-5.90); Red Cell Distribution Width 14.8 % (11.6-17.2); White Blood Count 10.7 th/mm3 (4.0-11.0)
[2018-10-09 05:16] VITALS: O2SAT 95
[2018-10-09 05:28] LABS: Calcium 7.7 mg/dL (8.5-10.1); Carbon Dioxide 31.4 meq/L (21.0-32.0); Potassium 4.2 meq/L (3.5-5.1)
[2018-10-09] MEDS: oxyCODONE/Acetaminophen 10/325 Tablet PO PRN ×3 (06:36→13:54)
--- NOTE | 2018-10-09 06:51 | P.PNOP ---
Subjective Interval history: POd 2 s/p ORIF left tibial pilon POD 13 s/p ORIF left BBFA and distal ulna doing well. states pain in ankle worse in AM. reports forearm doing well Physical Exam Vital signs: Vital Signs 10/08/18 08:00 18 11:30 10/08/18 16:00 Temperature 97.6 F 97.2 F L 98.2 F Pulse Rate 106 H 107 H 107 H Respiratory Rate 17 18 17 Blood Pressure 139/88 136/60 134/62 Pulse Oximetry 93 L 95 93 L 10/08/18 19:48 10/08/18 20:00 10/08/18 23:29 Temperature 98.3 F 98.2 F Pulse Rate 101 H 100 H 88 Respiratory Rate 18 18 Blood Pressure 138/67 119/69 Pulse Oximetry 97 96 10/08/18 23:59 10/09/18 03:39 10/09/18 03:54 Temperature 98.4 F Pulse Rate 83 94 H 94 H Respiratory Rate 18 Blood Pressure 129/72 Pulse Oximetry 95 Intake & Output 10/08/18 10/08/18 10/09/18 06:59 18:59 06:59 Intake Total 780 / 780 1010 / 1010 710 / 710 Output Total 600 / 600 900 / 900 800 / 800 Balance 180 / 180 110 / 110 -90 / -90 Weight 131 kg 131 kg Intake: IV 300 / 300 50 / 50 350 / 350 Vancomycin Inj 1,000 MG In NS 250 / 250 Inj 250 ML @ 250 mls/hr IV.SIG Q12H [facility] Rx#:[id number] Ancef 2 GM Premix Inj 2 gm In 50 / 50 50 / 50 100 / 100 50 ml @ 100 mls/hr IV.SIG Q8H USHA Rx#:[id number] Oral 480 / 480 960 / 960 360 / 360 Output: Urine 600 / 600 900 / 900 800 / 800 Other: Date of Last Bowel Movement 10/05/18 10/08/18 10/08/18 # Bowel Movements 0 1 0 Narrative: LUE: +long arm splint. intact. NVI LLE: +short leg splint. intact. NVI Results - Labs CBC & Chem 7: 10/09/18 04:20 10/09/18 04:20 Laboratory Results - last 24 hr 10/09/18 10/09/18 04:20 04:20 WBC 10.7 RBC 2.68 L Hgb 7.7 L Hct 23.0 L MCV 85.8 MCH 28.8 MCHC 33.5 RDW 14.8 Plt Count 524 H D MPV 8.0 Neut % (Auto) 81.6 H Lymph % (Auto) 11.0 Gray % (Auto) 6.5 Eos % (Auto) 0.5 Baso % (Auto) 0.4 Neut # (Auto) 8.7 H Lymph # (Auto) 1.2 Gray # (Auto) 0.7 Eos # (Auto) 0.1 Baso # (Auto) 0.0 WBC Differential . Differential Comment Auto diff final Sodium 138 Potassium 4.2 Chloride 102 Carbon Dioxide 31.4 Anion Gap 5 BUN 29 H Creatinine 1.19 Estimated GFR 77 L Random Glucose 103 Calcium 7.7 L Assessment and Plan - Assessment and Plan 1) Left Radius/Ulna Shaft Fxs and Ulnar Styloid Fx s/p ORIF - POD 13 2) Left Distal Tibia/Fibula Fxs s/p removal of exfix with ORIF - POD 2 -elevate left ankle and arm -NWB to LLE and LUE -maintain splints at all times -ortho surgeries complete at this time -DVT prophylaxis -CM for DC planning. home vs SNF -ok for platform walker with pressure to back of left arm/elbow. no pressure to forearm area -will order XRAYS of left forearm today -continue to eval with PT. will likely benefit from rehab placement due to immobility E-[facility] Prescription Drug Monitoring Database has been queried and verified prior to prescribing the controlled substance. Acute pain exception. This patient has normal, predicted, physiological, and time limited response to an adverse mechanical stimulus associated with surgery, trauma, or acute illness as described in my notes. There is a lack of alternative treatment options other than to include the prescribed narcotic treatment for this condition.
[2018-10-09] MEDS: Senna/Docusate Sodium 8.6/50 MG Tablet PO SCH (09:59)
[2018-10-09] MEDS: Gabapentin 400 MG Capsule PO SCH ×2 (09:59→13:54)
[2018-10-09] MEDS: Famotidine 20 MG Tablet PO SCH (09:59)
[2018-10-09] MEDS: Calcium/Vitamin D 250/125 MG Tablet PO SCH ×2 (09:59→13:54)
[2018-10-09] MEDS: Lidocaine 5% Patch T-DERMAL SCH (09:59)
[2018-10-09] MEDS: Enoxaparin Inj 30 MG/0.3 ML Syringe SQ SCH (10:00)
[2018-10-09] MEDS: hydroCHLOROthiazide 25 MG Tablet PO SCH (10:02)
[2018-10-09] MEDS: VERAPAMIL 240 MG PO SCH (10:09)
--- NOTE | 2018-10-09 10:42 | XR ---
EXAM DATE: 10/09/2018 10:02 AM EST AGE/SEX: 52 years / Male INDICATIONS: Evaluate left forearm fracture CLINICAL DATA: This is the patient's subsequent encounter. Patient reports that signs and symptoms h ave been present for 2 weeks and indicates a pain score of Nonresponsive. MEDICAL/SURGICAL HISTORY: Non-responsive. Non-responsive. COMPARISON: [facility] – [place], FOREARM LEFT 2V, 09/26/2018. . FINDINGS: 3 views of the left forearm following ORIF and casting documents a proximal and distal ulnar side luisito te with multiple interlocking screws with overall improved alignment. There is a minimally displaced butterfly fragment of the proximal ulna. There is a mid radial side plate with multiple interlocking screws with overall improved alignment with persistent displaced butterfly fragment. Skin rafa are present. No concerning radiopaque foreign body is identified. CONCLUSION: Improved alignment following radius and ulna ORIF, as above. There are butterfly fragments associated with the proximal ulna and radial fractures that remain slightly displaced. Electronically signed by: Bharat Cheema MD Board Certified Radiologist 10/09/2018 10:11 AM EST
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
[2018-10-09 13:47] VITALS: BP 121/70; PULSE 95; TEMP 97.8
== END 2018-10-09 14:58 ==
LOC: NEPI 04:41 → NEDA 05:11 → N06 06:36 → UNDODISIN 09-28 14:46
PROVIDERS: ADMIT Surgery; ATTEND Surgery
PROC: ORIFTIB (2018-10-07 10:01)

== ENCOUNTER 2018-10-15 19:01 | Inpatient (IN) ==
[2018-10-15] MEDS ORDERED: Bisacodyl 10 MG Supp RECTAL PRN (20:36)
[2018-10-15] MEDS: oxyCODONE/Acetaminophen 10/325 Tablet PO PRN (21:20)
[2018-10-15] MEDS: Metoprolol Tartrate 25 MG Tablet PO SCH (21:21)
[2018-10-15] MEDS: guaiFENesin 600 MG ER Tablet PO SCH (21:21)
[2018-10-15] MEDS: Senna/Docusate Sodium 8.6/50 MG Tablet PO SCH (21:22)
[2018-10-15] MEDS: Famotidine 20 MG Tablet PO SCH (21:22)
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
[2018-10-16 06:14] LABS: Baso % (Auto) 0.6 % (0.0-2.0); Eos # (Auto) 0.1 th/mm3 (0.0-0.4); Eos % (Auto) 1.3 % (0.0-4.0); Hematocrit 23.9 % (39.0-51.0); Hemoglobin 7.7 gm/dL (13.0-17.0); Lymph % (Auto) 13.7 % (9.0-44.0); Mean Corpuscular HGB Conc 32.2 % (32.0-36.0); Mean Corpuscular Hemoglobin 27.1 pg (27.0-34.0); Mean Platelet Volume 7.3 fL (7.0-11.0); Mono # (Auto) 1.1 th/mm3 (0.0-0.9); Mono % (Auto) 14.4 % (0.0-8.0); Neut # (Auto) 5.1 th/mm3 (1.8-7.7); Platelet Count 578 th/mm3 (150-450); Red Blood Count 2.85 mil/mm3 (4.50-5.90); Red Cell Distribution Width 15.7 % (11.6-17.2); White Blood Count 7.3 th/mm3 (4.0-11.0)
[2018-10-16 06:38] LABS: Potassium 4.3 meq/L (3.5-5.1)
--- NOTE | 2018-10-16 08:52 | XR ---
EXAM DATE: 10/16/2018 8:47 AM EST AGE/SEX: 52 years / Male INDICATIONS: Chest pain. CLINICAL DATA: This is the patient's subsequent encounter. Patient reports that signs and symptoms h ave been present for 2 weeks and indicates a pain score of 3/10. MEDICAL/SURGICAL HISTORY: Hypertension. . Left ankle. Left forearm. COMPARISON: [facility], CHEST 2V AP&LAT, 10/14/2018. . FINDINGS: There continues to be some parenchymal consolidation the left lower lung which is mildly improved com pared to the prior exam. Otherwise, the rest the lung walsh remain clear. No new infiltrates are see n. The heart size is enlarged but stable. There is no pneumothorax. The bony structures are stable. CONCLUSION: Mild improvement of the left lower lung parenchymal changes compared to the prior study. Electronically signed by: Andrea Valdivia MD Board Certified Radiologist 10/16/2018 8:51 AM EST
[2018-10-16] MEDS ORDERED: Lidocaine 5% Patch T-DERMAL SCH (09:00)
[2018-10-16] MEDS: Metoprolol Tartrate 25 MG Tablet PO SCH ×2 (09:20→20:35)
[2018-10-16] MEDS: guaiFENesin 600 MG ER Tablet PO SCH ×2 (09:21→20:35)
[2018-10-16] MEDS: oxyCODONE/Acetaminophen 10/325 Tablet PO PRN ×4 (09:21→20:34)
[2018-10-16] MEDS: Gabapentin 400 MG Capsule PO SCH ×3 (09:22→17:47)
[2018-10-16] MEDS: Senna/Docusate Sodium 8.6/50 MG Tablet PO SCH ×2 (09:22→20:36)
[2018-10-16] MEDS: levoFLOXacin 750 MG Tablet PO SCH (09:23)
[2018-10-16] MEDS: Calcium/Vitamin D 250/125 MG Tablet PO SCH ×3 (09:23→17:47)
[2018-10-16] MEDS: Enoxaparin Inj 30 MG/0.3 ML Syringe SQ SCH ×2 (10:41→20:36)
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
[2018-10-16] MEDS: Verapamil SR 240 MG Tablet PO SCH (12:56)
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
[2018-10-16] MEDS: Famotidine 20 MG Tablet PO SCH (20:34)
[2018-10-17] MEDS: oxyCODONE/Acetaminophen 10/325 Tablet PO PRN ×3 (01:19→18:16)
[2018-10-17 04:37] LABS: Hematocrit 23.2 % (39.0-51.0); Hemoglobin 7.4 gm/dL (13.0-17.0); Mean Corpuscular HGB Conc 31.9 % (32.0-36.0); Mean Corpuscular Hemoglobin 26.4 pg (27.0-34.0); Mean Corpuscular Volume 82.9 fL (80.0-100.0); Mean Platelet Volume 7.4 fL (7.0-11.0); Platelet Count 506 th/mm3 (150-450); Red Cell Distribution Width 15.7 % (11.6-17.2); White Blood Count 5.9 th/mm3 (4.0-11.0)
[2018-10-17 04:42] LABS: Carbon Dioxide 27.8 meq/L (21.0-32.0); Potassium 4.2 meq/L (3.5-5.1)
[2018-10-17] MEDS: guaiFENesin 600 MG ER Tablet PO SCH ×2 (08:32→21:07)
[2018-10-17] MEDS: Enoxaparin Inj 30 MG/0.3 ML Syringe SQ SCH ×2 (08:32→21:07)
[2018-10-17] MEDS: levoFLOXacin 750 MG Tablet PO SCH (08:32)
[2018-10-17] MEDS: Calcium/Vitamin D 250/125 MG Tablet PO SCH ×3 (08:33→17:34)
[2018-10-17] MEDS: Lidocaine 5% Patch T-DERMAL SCH (08:33)
[2018-10-17] MEDS: Senna/Docusate Sodium 8.6/50 MG Tablet PO SCH ×2 (08:33→21:07)
[2018-10-17] MEDS: Gabapentin 400 MG Capsule PO SCH ×3 (08:33→17:34)
[2018-10-17] MEDS: Metoprolol Tartrate 25 MG Tablet PO SCH ×2 (08:34→21:05)
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
--- NOTE | 2018-10-17 11:51 | ECHRPT ---
Indication: EFFUSION CONCLUSIONS Normal left ventricular size. Wall thickness is normal. The left ventricular systolic function is normal with an estimated ejection fraction in the range of 60-65%. No regional wall motion abnormalities are present. There is mild tricuspid valve regurgitation. The estimated pulmonary arterial pressure is 31mmHg. There is a moderate to large size pericardial effusion with no definite evidence for tamponade. The re is no right ventricular diastolic collapse, no right atrial invagination greater than 2/3 of the cardiac c ycle, and no definite variation greater than 25% in the mitral valve E wave velocities. BP: / HR: Rhythm: MEASUREMENTS (Male / Female) Normal Values Technical Quality: 2D ECHO LV Diastolic Diameter PLAX 5.1 cm 4.2 - 5.9 / 3.9 - 5.3 cm LV Systolic Diameter PLAX 3.4 cm IVS Diastolic Thickness 1.0 cm 0.6 - 1.0 / 0.6 - 0.9 cm LVPW Diastolic Thickness 1.0 cm 0.6 - 1.0 / 0.6 - 0.9 cm LV Relative Wall Thickness 0.4 RV Internal Dim ED PLAX 2.5 cm DOPPLER TR Peak Velocity 228.0 cm/s TR Peak Gradient 20.8 mmHg Right Atrial Pressure 10.0 mmHg Pulmonary Artery Systolic Pressu 30.8 mmHg Right Ventricular Systolic Press 30.8 mmHg FINDINGS LEFT VENTRICLE Normal left ventricular size. Wall thickness is normal. The left ventricular systolic function is normal with an estimated ejection fraction in the range of 60-65%. No regional wall motion abnormalities are present. RIGHT VENTRICLE Normal right ventricular size and systolic function. LEFT ATRIUM The left atrial size is normal. RIGHT ATRIUM The right atrial size is normal. ATRIAL SEPTUM Normal atrial septal thickness without atrial level shunting by limited color doppler interrogation. AORTA The aortic root and proximal ascending aorta are normal in size on limited imaging. MITRAL VALVE Structurally normal mitral valve. No mitral valve stenosis or regurgitation. AORTIC VALVE Trileaflet aortic valve. No aortic valve stenosis or regurgitation. TRICUSPID VALVE There is mild tricuspid valve regurgitation. The estimated pulmonary arterial pressure is 31mmHg. PULMONARY VALVE No pulmonary valve regurgitation or stenosis. VESSELS The inferior vena cava is normal in size. PERICARDIUM There is a moderate to large size pericardial effusion with no definite evidence for tamponade. The re is no right ventricular diastolic collapse, no right atrial invagination greater than 2/3 of the cardiac c ycle, and no definite variation greater than 25% in the mitral valve E wave velocities. Justyn Mohan MD (Electronically Signed) Final Date:17 October 2018 11:49
[2018-10-17] MEDS: Verapamil SR 240 MG Tablet PO SCH (12:40)
[2018-10-17] MEDS: Famotidine 20 MG Tablet PO SCH (21:07)
--- NOTE | 2018-10-18 04:43 | XR ---
EXAM DATE: 10/18/2018 4:33 AM EST AGE/SEX: 52 years / Male INDICATIONS: Respiratory disease. CLINICAL DATA: This is the patient's subsequent encounter. Patient reports that signs and symptoms h ave been present for 3 weeks and indicates a pain score of 7/10. MEDICAL/SURGICAL HISTORY: . Hypertension. . Left ankle. Left forearm. COMPARISON: [facility] – [place], CHEST 1V SINGLE AP, 10/16/2018. . FINDINGS: Parenchymal consolidation with a small to moderate pleural effusion again seen of the left lung base, not significantly changed. Mild cardiomegaly also similar to before. I don't see a pneumothorax. CONCLUSION: No significant change cardiomegaly and consolidation/pleural effusion at the left base. Electronically signed by: Bharat Segura MD Board Certified Radiologist 10/18/2018 4:41 AM EST
[2018-10-18] MEDS: guaiFENesin 600 MG ER Tablet PO SCH ×2 (08:51→21:27)
[2018-10-18] MEDS: Calcium/Vitamin D 250/125 MG Tablet PO SCH ×3 (08:51→17:39)
[2018-10-18] MEDS: Metoprolol Tartrate 25 MG Tablet PO SCH ×2 (08:51→21:28)
[2018-10-18] MEDS: levoFLOXacin 750 MG Tablet PO SCH (08:52)
[2018-10-18] MEDS: Enoxaparin Inj 30 MG/0.3 ML Syringe SQ SCH ×2 (08:52→21:29)
[2018-10-18] MEDS: Gabapentin 400 MG Capsule PO SCH ×3 (08:52→17:39)
[2018-10-18] MEDS: Senna/Docusate Sodium 8.6/50 MG Tablet PO SCH ×2 (08:52→21:27)
[2018-10-18] MEDS: Lidocaine 5% Patch T-DERMAL SCH (08:52)
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
[2018-10-18] MEDS ORDERED: Sodium Chlor 0.9% Inj 250 ML IV.SIG SCH (12:00)
[2018-10-18] MEDS: Verapamil SR 240 MG Tablet PO SCH (12:40)
[2018-10-18] MEDS: oxyCODONE/Acetaminophen 10/325 Tablet PO PRN (17:39)
[2018-10-18] MEDS: Famotidine 20 MG Tablet PO SCH (21:28)
[2018-10-19 03:50] LABS: Hematocrit 26.2 % (39.0-51.0); Hemoglobin 8.5 gm/dL (13.0-17.0)
[2018-10-19] MEDS: levoFLOXacin 750 MG Tablet PO SCH (09:32)
[2018-10-19] MEDS: Metoprolol Tartrate 25 MG Tablet PO SCH ×2 (09:32→21:25)
[2018-10-19] MEDS: Gabapentin 400 MG Capsule PO SCH ×3 (09:32→17:22)
[2018-10-19] MEDS: Calcium/Vitamin D 250/125 MG Tablet PO SCH ×3 (09:32→17:22)
[2018-10-19] MEDS: guaiFENesin 600 MG ER Tablet PO SCH ×2 (09:32→21:25)
[2018-10-19] MEDS: Enoxaparin Inj 30 MG/0.3 ML Syringe SQ SCH (09:33)
[2018-10-19] MEDS: Senna/Docusate Sodium 8.6/50 MG Tablet PO SCH ×2 (09:33→22:06)
[2018-10-19] MEDS: Lidocaine 5% Patch T-DERMAL SCH (09:42)
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
[2018-10-19] MEDS: Verapamil SR 240 MG Tablet PO SCH (12:28)
[2018-10-19] MEDS: Famotidine 20 MG Tablet PO SCH (21:25)
--- NOTE | 2018-10-20 06:33 | XR ---
EXAM DATE: 10/20/2018 6:21 AM EST AGE/SEX: 52 years / Male INDICATIONS: Short of breath. Evaluate pericardial effusion CLINICAL DATA: This is the patient's subsequent encounter. Patient reports that signs and symptoms h ave been present for 2 weeks and indicates a pain score of 0/10. MEDICAL/SURGICAL HISTORY: . left arm and left ankle fractures None. COMPAR[place]: [facility] [place] 1[place] S[place], 10/18/2018. . FINDINGS: There is at least a moderate left pleural effusion. There is silhouetting the left hemidiaphragm and left heart border. Despite this the cardiac silhouette appears enlarged. Right lung is clear. There i s a mild right pleural effusion seen at the right lateral lower chest. CONCLUSION: Enlargement of the cardiac silhouette. At least moderate left pleural effusion and a small right pleural effusion. Electronically signed by: Bharat Mckeon MD Board Certified Radiologist 10/20/2018 6:32 AM EST
[2018-10-20] MEDS: Calcium/Vitamin D 250/125 MG Tablet PO SCH ×3 (08:07→17:30)
[2018-10-20] MEDS: Lidocaine 5% Patch T-DERMAL SCH (08:07)
[2018-10-20] MEDS: Enoxaparin Inj 30 MG/0.3 ML Syringe SQ SCH (08:07)
[2018-10-20] MEDS: Senna/Docusate Sodium 8.6/50 MG Tablet PO SCH ×2 (08:07→21:53)
[2018-10-20] MEDS: Gabapentin 400 MG Capsule PO SCH ×3 (08:07→17:30)
[2018-10-20] MEDS: Metoprolol Tartrate 25 MG Tablet PO SCH ×2 (08:07→21:52)
[2018-10-20] MEDS: guaiFENesin 600 MG ER Tablet PO SCH ×2 (08:07→21:52)
--- NOTE | 2018-10-20 11:00 | P.PNCA ---
Subjective Interval history: Patient continues to complain of chest discomfort and SOB. He reports that his symptoms have not changed over the past couple of days. Continue to experience SOB when talking. Telemetry reveals sinus tachycardia rates 110-130. He is pending repeat echo tomorrow to re-evaluate pericardial effusion. Medications and Allergies Allergies Allergy/AdvReac Type Severity Reaction Status Date / Time No Known Allergies Allergy Verified 10/09/18 15:53 Active Medications: Active Medications Acetaminophen (Tylenol) 650 mg PO Q4H PRN PRN Reason: PAIN 0-3 OR TEMP > 100.5 Al Hydroxide/Mg Hydroxide (Milk Of Magnesia Liq) 30 ml PO DAILY PRN PRN Reason: MILD CONSTIPATION Albuterol (Duoneb Neb (Prn)) 1 ampul NEB Q4HR NEB PRN PRN Reason: SHORTNESS OF BREATH Bisacodyl (Dulcolax Supp) 10 mg RECTAL DAILY PRN PRN Reason: SEVERE CONSTIPATION Calcium/Vitamin D (Oscal With D 250/125 Mg) 1 tab PO TID [facility] Last Admin: 10/20/18 08:07 Dose: 1 tab Cyclobenzaprine HCl (Flexeril) 10 mg PO Q8HR [facility] Last Admin: 10/20/18 05:57 Dose: 10 mg Enalaprilat (Vasotec Inj) 1.25 mg IV.PUSH Q8H PRN PRN Reason: Blood pressure 180/95 Enoxaparin Sodium (Lovenox Inj) 30 mg SQ DAILY [facility] Last Admin: 10/20/18 08:07 Dose: 30 mg Famotidine (Pepcid) 20 mg PO HS [facility] Last Admin: 10/19/18 21:25 Dose: 20 mg Furosemide (Lasix Inj) 20 mg IV.PUSH DAILY [facility] Last Admin: 10/20/18 08:08 Dose: 20 mg Gabapentin (Neurontin) 400 mg PO TID [facility] Last Admin: 10/20/18 08:07 Dose: 400 mg Guaifenesin (Mucinex Er) 1,200 mg PO BID [facility] Last Admin: 10/20/18 08:07 Dose: 1,200 mg Lactulose (Lactulose Liq) 30 ml PO DAILY PRN PRN Reason: MODERATE CONSTIPATION Lidocaine HCl (Lidoderm 5% Patch.12 Hr) 1 patch T-DERMAL DAILY [facility] Last Admin: 10/20/18 08:07 Dose: 1 patch Metoprolol Tartrate (Lopressor) 12.5 mg PO BID [facility] Last Admin: 10/20/18 08:07 Dose: 12.5 mg Miscellaneous (Pill Splitter) 1 each OTHER UNSCH PRN PRN Reason: PILL SPIT Ondansetron HCl (Zofran Inj) 4 mg IV.PUSH Q6H PRN PRN Reason: NAUSEA OR VOMITING Oxycodone/Acetaminophen (Percocet 10/325 Mg) 1 tab PO Q3H PRN PRN Reason: PAIN 5-10 Last Admin: 10/18/18 17:39 Dose: 1 tab Patch Removal (Remove Old Patch) 2 each T-DERMAL HS [facility] Last Admin: 10/19/18 22:07 Dose: Not Given Patch Removal (Remove Old Patch) 1 each T-DERMAL HS [facility] Last Admin: 10/19/18 22:07 Dose: Not Given Senna/Docusate Sodium (Lissa-Colace) 1 tab PO BID [facility] Last Admin: 10/20/18 08:07 Dose: 1 tab Sodium Chloride (Ns Flush) 2 ml IV.FLUSH UNSCH PRN PRN Reason: FLUSH AFTER USING IV ACCESS Last Admin: 10/16/18 09:20 Dose: 2 ml Tamsulosin HCl (Flomax) 0.4 mg PO DAILY [facility] Last Admin: 10/20/18 08:07 Dose: 0.4 mg Verapamil HCl (Isoptin Sr) 240 mg PO DAILY@1200 [facility] Last Admin: 10/19/18 12:28 Dose: 240 mg Physical Exam Vital signs: Vital Signs 10/19/18 12:30 10/19/18 16:55 10/19/18 20:00 Temperature 98.3 F 98.9 F 98.7 F Pulse Rate 106 H 112 H 82 Respiratory Rate 20 18 18 Blood Pressure 117/72 146/87 H 182/86 H Pulse Oximetry 99 98 96 10/20/18 00:00 10/20/18 04:00 10/20/18 07:50 Temperature 98.3 F 98.2 F 98.7 F Pulse Rate 111 H 113 H 113 H Respiratory Rate 18 18 20 Blood Pressure 152/80 H 136/72 136/84 Pulse Oximetry 98 96 96 10/20/18 08:00 Temperature Pulse Rate 109 H Respiratory Rate Blood Pressure Pulse Oximetry 96 Intake & Output 10/19/18 10/20/18 10/20/18 18:59 06:59 18:59 Output Total 1300 / 1300 Balance -1300 / -1300 Weight 123.2 kg Output: Urine 1300 / 1300 Other: # Voids 3 Date of Last Bowel Movement 10/19/18 10/19/18 10/19/18 # Bowel Movements 1 1 - Constitutional mild distress - Routine HEENT Exam Head: Present: normocephalic Eye: Present: EOMI, PERRL, normal accommodation ENT: Present: mucous membranes moist - Routine Neck Exam Present: supple - Routine Respiratory Exam Present: diminished air movement Comments: on NC @ 2L - Routine Cardiovascular Exam Present: tachycardia - Routine Abdominal Exam Present: soft - Routine Extremities Exam Comments: left arm and leg bandaged and splinted - Routine Skin Exam Present: intact - Routine Neurological Exam Present: alert, oriented X3 - Detailed Neurological Exam: Coma Scale Eye Opening: Spontaneous Verbal Response: Oriented Motor Response: Obey commands Travis Coma Scale Total: 15 - Routine Psychiatric Exam Present: normal affect Results 10/20/18 10:37 10/17/18 03:48 CBC 10/19/18 Range/Units 03:35 Hgb 8.5 L (13.0-17.0) gm/dL Hct 26.2 L (39.0-51.0) % Intake and Output 10/19/18 10/20/18 10/20/18 22:59 06:59 14:59 Output Total 1300 / 1300 Balance -1300 / -1300 Output: Urine 1300 / 1300 Other: # Voids 3 Date of Last Bowel Movement 10/19/18 10/19/18 # Bowel Movements 1 1 Weight 123.2 kg - Imaging and Cardiology Imaging: Impressions Chest X-Ray 10/20/18 06:00 CONCLUSION: Enlargement of the cardiac silhouette. At least moderate left pleural effusion and a small right pleural effusion. Assessment and Plan - Plan Assessment Pericardial Effusion Pleural Effusion Tachycardia Anemia Plan Patient having midsternal chest pain related to the sternal fx. Patient currently SR-ST on monitor. His VS continue to remain stable. Last Limited 2D echo with no evidence of hemodynamic compromise to his pericardial effusion. Lovenox reduced to once daily to avoid further progression of his traumatic pericardial effusion.Pending repeat echo. Continue to monitor patient on telemetry. Continue to monitor Hbg, pt was transfused 1 unit PRBC's on 10/18. Continue to increase activity as patient tolerates. With pleural effusion and shortness of breath consider pulmonary evaluation. Echo ordered for today, results pending. The patient was seen and evaluated by Dr. Mahoney who participated in care management and decision making. The exam, history, and the medical decision-making described in the above note were completed with the assistance of the mid-level provider. I reviewed and agree with the findings presented. I attest that I had a [id number] encounter with the patient on the same day, and personally performed and documented my assessment and findings in the medical record. Pt has no clinical signs of tamponade but has a fx sternum. His echo was reviewed , no cardiac tamponade. Discussed Condition With: Dr. Mahoney
[2018-10-20 11:22] LABS: Baso % (Auto) 0.3 % (0.0-2.0); Eos # (Auto) 0.1 th/mm3 (0.0-0.4); Eos % (Auto) 0.9 % (0.0-4.0); Hematocrit 27.2 % (39.0-51.0); Lymph # (Auto) 0.7 th/mm3 (1.0-4.8); Lymph % (Auto) 11.3 % (9.0-44.0); Mean Corpuscular Hemoglobin 27.3 pg (27.0-34.0); Mean Corpuscular Volume 82.7 fL (80.0-100.0); Mean Platelet Volume 7.2 fL (7.0-11.0); Mono # (Auto) 0.7 th/mm3 (0.0-0.9); Neut # (Auto) 4.8 th/mm3 (1.8-7.7); Neut % (Auto) 76.5 % (16.0-70.0); Platelet Count 506 th/mm3 (150-450); Red Blood Count 3.28 mil/mm3 (4.50-5.90); Red Cell Distribution Width 15.9 % (11.6-17.2); White Blood Count 6.3 th/mm3 (4.0-11.0)
[2018-10-20] MEDS: Verapamil SR 240 MG Tablet PO SCH (12:43)
[2018-10-20] MEDS: oxyCODONE/Acetaminophen 10/325 Tablet PO PRN (12:43)
--- NOTE | 2018-10-20 14:40 | ECHRPT ---
Indication: CONCLUSIONS Normal left ventricular size. Wall thickness is measured at the upper limits of normal. The left ventricular systolic function is normal with an estimated ejection fraction in the range of 55-60%. The pulmonary valve is not well visualized. There is a [id number] pericardial effusion present. A large left sided pleural effusion is noted. No hemodynamically significant echocardiographic features were observed (no pre-tamponade physiology). BP: / HR: Rhythm: MEASUREMENTS (Male / Female) Normal Values Technical Quality:Fair 2D ECHO LV Diastolic Diameter PLAX 3.9 cm 4.2 - 5.9 / 3.9 - 5.3 cm LV Systolic Diameter PLAX 2.8 cm IVS Diastolic Thickness 1.1 cm 0.6 - 1.0 / 0.6 - 0.9 cm LVPW Diastolic Thickness 1.1 cm 0.6 - 1.0 / 0.6 - 0.9 cm LV Relative Wall Thickness 0.5 RV Internal Dim ED PLAX 3.4 cm Aortic Root Diameter 3.4 cm LA Systolic Diameter LX 2.6 cm 3.0 - 4.0 / 2.7 - 3.8 cm FINDINGS LEFT VENTRICLE Normal left ventricular size. Wall thickness is measured at the upper limits of normal. The left ventricular systolic function is normal with an estimated ejection fraction in the range of 55-60%. RIGHT VENTRICLE Normal right ventricular size and systolic function. LEFT ATRIUM The left atrial size is normal. RIGHT ATRIUM The right atrial size is normal. ATRIAL SEPTUM Normal atrial septal thickness without atrial level shunting by limited color doppler interrogation. AORTA The aortic root and proximal ascending aorta are normal in size on limited imaging. MITRAL VALVE Structurally normal mitral valve. No mitral valve stenosis or regurgitation. AORTIC VALVE Trileaflet aortic valve. No aortic valve stenosis or regurgitation. TRICUSPID VALVE Structurally normal tricuspid valve. No tricuspid valve stenosis or regurgitation. PULMONARY VALVE The pulmonary valve is not well visualized. VESSELS The inferior vena cava is normal in size. PERICARDIUM There is a [id number] pericardial effusion present. A large left sided pleural effusion is noted. No hemodynamically significant echocardiographic features were observed (no pre-tamponade physiology). Darrin Santoyo MD, FACC (Electronically Signed) Final Date:20 October 2018 14:39
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
[2018-10-20] MEDS: Famotidine 20 MG Tablet PO SCH (21:52)
[2018-10-21 04:29] LABS: Baso % (Auto) 0.3 % (0.0-2.0); Eos # (Auto) 0.1 th/mm3 (0.0-0.4); Eos % (Auto) 1.7 % (0.0-4.0); Hematocrit 27.6 % (39.0-51.0); Hemoglobin 9.1 gm/dL (13.0-17.0); Lymph # (Auto) 0.9 th/mm3 (1.0-4.8); Lymph % (Auto) 14.3 % (9.0-44.0); Mean Corpuscular Volume 81.8 fL (80.0-100.0); Mean Platelet Volume 7.4 fL (7.0-11.0); Mono # (Auto) 0.6 th/mm3 (0.0-0.9); Mono % (Auto) 9.2 % (0.0-8.0); Neut # (Auto) 4.7 th/mm3 (1.8-7.7); Neut % (Auto) 74.5 % (16.0-70.0); Platelet Count 530 th/mm3 (150-450); Red Blood Count 3.38 mil/mm3 (4.50-5.90); White Blood Count 6.2 th/mm3 (4.0-11.0)
[2018-10-21 04:54] LABS: Calcium 8.4 mg/dL (8.5-10.1); Potassium 4.1 meq/L (3.5-5.1)
[2018-10-21] MEDS: guaiFENesin 600 MG ER Tablet PO SCH ×2 (08:18→21:37)
[2018-10-21] MEDS: Gabapentin 400 MG Capsule PO SCH ×3 (08:18→17:00)
[2018-10-21] MEDS: Metoprolol Tartrate 25 MG Tablet PO SCH ×2 (08:18→21:38)
[2018-10-21] MEDS: Calcium/Vitamin D 250/125 MG Tablet PO SCH ×3 (08:18→17:00)
[2018-10-21] MEDS: Senna/Docusate Sodium 8.6/50 MG Tablet PO SCH ×2 (08:18→21:37)
[2018-10-21] MEDS: Lidocaine 5% Patch T-DERMAL SCH (08:19)
[2018-10-21] MEDS: Enoxaparin Inj 30 MG/0.3 ML Syringe SQ SCH (08:19)
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
[2018-10-21] MEDS: Verapamil SR 240 MG Tablet PO SCH (13:00)
--- NOTE | 2018-10-21 16:34 | CT ---
EXAM DATE: 10/21/2018 4:30 PM EST AGE/SEX: 52 years / Male INDICATIONS: Left pleural effusion. Short of breath. CLINICAL DATA: This is the patient's initial encounter. Patient reports that signs and symptoms have been present for 1 week and indicates a pain score of 5/10. MEDICAL/SURGICAL HISTORY: Hypertension. None. RADIATION DOSE: 9.59 CTDI (mGy) COMPARISON: [facility], [facility]A PULMONARY W CONTRAST W 3D, 10/15/2018. . TECHNIQUE: Multiple contiguous axial images were obtained through the chest during bolus infusion of 50 ml Omnipaque 350 (iohexol) nonionic water-soluble contrast as a single exam dose. Images were obtained in suspended respiration using multiple row detector helical technique. Using automated exp osure control and adjustment of the mA and/or kV according to patient size, radiation dose was kept a s low as reasonably achievable to obtain optimal diagnostic quality images. DICOM format image data is available electronically for review and comparison. FINDINGS: Comparison is October 15. There is a large left pleural effusion and moderate right pleural effusions both of which have increa sed since comparison. There is compressive atelectasis, left greater than right. Large pericardial ef fusion persists. No adenopathy identified. No acute findings in the upper abdomen. No acute bony abnormalities. CONCLUSION: 1. Large left effusion and moderate right effusion both of which have increased in size since [facility] er 26 examination. 2. Persistent stable large pericardial effusion. 3. Compressive atelectasis in the lungs, left greater than right. Electronically signed by: Terry Mackey MD Board Certified Radiologist 10/21/2018 4:33 PM EST
[2018-10-21] MEDS: oxyCODONE/Acetaminophen 10/325 Tablet PO PRN (21:37)
[2018-10-21] MEDS: Famotidine 20 MG Tablet PO SCH (21:38)
[2018-10-22] MEDS: oxyCODONE/Acetaminophen 10/325 Tablet PO PRN ×3 (05:57→20:25)
[2018-10-22] MEDS ORDERED: Lidocaine 1%/Epinephrine 1:100,000 Inj 50 ML Vial ONE (08:35)
[2018-10-22] MEDS: Lidocaine 5% Patch T-DERMAL SCH (08:42)
[2018-10-22] MEDS: Metoprolol Tartrate 25 MG Tablet PO SCH ×2 (08:43→20:25)
[2018-10-22] MEDS: Senna/Docusate Sodium 8.6/50 MG Tablet PO SCH ×2 (08:43→20:24)
[2018-10-22] MEDS: Gabapentin 400 MG Capsule PO SCH ×3 (08:43→17:20)
[2018-10-22] MEDS: guaiFENesin 600 MG ER Tablet PO SCH ×2 (08:43→20:23)
[2018-10-22] MEDS: Calcium/Vitamin D 250/125 MG Tablet PO SCH ×3 (08:43→17:20)
[2018-10-22] MEDS ORDERED: fentaNYL Citrate Inj 250 MCG/5 ML Ampul ONE (09:02)
--- NOTE | 2018-10-22 10:12 | P.RAD ---
Post CT Procedure Prog Note - Procedure Information Procedure Date: 10/22/18 Supervising Radiologist: Carlos Manuel Barragan MD Estimated blood loss (mL): 5 Anesthesia: Conscious Sedation - Plan of Activity Patient to Unit: ROPU Patient condition: Good See PACS Report for procedural detail/treatment.
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
[2018-10-22] MEDS: Verapamil SR 240 MG Tablet PO SCH (11:50)
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
--- NOTE | 2018-10-22 13:18 | P.PNCA ---
Subjective Interval history: Patient is resting in bed this a.m. Reports his chest pain and shortness of breath has improved over the past 2 days. Now has chest tube in place. Echocardiogram completed on 10/20 showed mild to moderate pericardial effusion. Medications and Allergies Allergies Allergy/AdvReac Type Severity Reaction Status Date / Time No Known Allergies Allergy Verified 10/09/18 15:53 Active Medications: Active Medications Acetaminophen (Tylenol) 650 mg PO Q4H PRN PRN Reason: PAIN 0-3 OR TEMP > 100.5 Al Hydroxide/Mg Hydroxide (Milk Of Magnesia Liq) 30 ml PO DAILY PRN PRN Reason: MILD CONSTIPATION Albuterol (Duoneb Neb (Prn)) 1 ampul NEB Q4HR NEB PRN PRN Reason: SHORTNESS OF BREATH Bisacodyl (Dulcolax Supp) 10 mg RECTAL DAILY PRN PRN Reason: SEVERE CONSTIPATION Calcium/Vitamin D (Oscal With D 250/125 Mg) 1 tab PO TID [facility] Last Admin: 10/22/18 08:43 Dose: Not Given Cyclobenzaprine HCl (Flexeril) 10 mg PO Q8HR [facility] Last Admin: 10/22/18 05:57 Dose: 10 mg Enalaprilat (Vasotec Inj) 1.25 mg IV.PUSH Q8H PRN PRN Reason: Blood pressure 180/95 Enoxaparin Sodium (Lovenox Inj) 30 mg SQ DAILY [facility] Last Admin: 10/21/18 08:19 Dose: 30 mg Famotidine (Pepcid) 20 mg PO HS [facility] Last Admin: 10/21/18 21:38 Dose: 20 mg Furosemide (Lasix Inj) 20 mg IV.PUSH DAILY [facility] Last Admin: 10/22/18 08:42 Dose: Not Given Gabapentin (Neurontin) 400 mg PO TID [facility] Last Admin: 10/22/18 08:43 Dose: Not Given Guaifenesin (Mucinex Er) 1,200 mg PO BID [facility] Last Admin: 10/22/18 08:43 Dose: Not Given Lactulose (Lactulose Liq) 30 ml PO DAILY PRN PRN Reason: MODERATE CONSTIPATION Lidocaine HCl (Lidoderm 5% Patch.12 Hr) 1 patch T-DERMAL DAILY [facility] Last Admin: 10/22/18 08:42 Dose: Not Given Metoprolol Tartrate (Lopressor) 12.5 mg PO BID [facility] Last Admin: 10/22/18 08:43 Dose: Not Given Miscellaneous (Pill Splitter) 1 each OTHER UNSCH PRN PRN Reason: PILL SPIT Ondansetron HCl (Zofran Inj) 4 mg IV.PUSH Q6H PRN PRN Reason: NAUSEA OR VOMITING Oxycodone/Acetaminophen (Percocet 10/325 Mg) 1 tab PO Q3H PRN PRN Reason: PAIN 5-10 Last Admin: 10/22/18 11:49 Dose: 1 tab Patch Removal (Remove Old Patch) 2 each T-DERMAL HS [facility] Last Admin: 10/21/18 21:36 Dose: 2 each Patch Removal (Remove Old Patch) 1 each T-DERMAL HS [facility] Last Admin: 10/21/18 21:36 Dose: Not Given Senna/Docusate Sodium (Lissa-Colace) 1 tab PO BID [facility] Last Admin: 10/22/18 08:43 Dose: Not Given Sodium Chloride (Ns Flush) 2 ml IV.FLUSH UNSCH PRN PRN Reason: FLUSH AFTER USING IV ACCESS Last Admin: 10/16/18 09:20 Dose: 2 ml Tamsulosin HCl (Flomax) 0.4 mg PO DAILY [facility] Last Admin: 10/22/18 08:42 Dose: Not Given Verapamil HCl (Isoptin Sr) 240 mg PO DAILY@1200 [facility] Last Admin: 10/22/18 11:50 Dose: 240 mg Physical Exam Vital signs: Vital Signs 10/21/18 16:00 10/21/18 16:42 10/21/18 20:00 Temperature 98.1 F 97.7 F Pulse Rate 105 H 103 H 100 H Respiratory Rate 16 18 Blood Pressure 119/73 162/77 H Pulse Oximetry 96 97 10/22/18 00:00 10/22/18 04:00 10/22/18 07:48 Temperature 97.8 F 97.7 F 97.8 F Pulse Rate 93 H 100 H 107 H Respiratory Rate 18 18 16 Blood Pressure 126/63 158/70 H 165/85 H Pulse Oximetry 97 97 94 L 10/22/18 07:50 10/22/18 08:00 10/22/18 10:40 Temperature 97.6 F Pulse Rate 107 H 114 H Respiratory Rate 16 Blood Pressure 153/80 H Pulse Oximetry 98 10/22/18 10:55 10/22/18 11:10 10/22/18 11:48 Temperature Pulse Rate 112 H 110 H Respiratory Rate 16 16 16 Blood Pressure 156/84 H 147/83 H Pulse Oximetry 96 96 10/22/18 12:00 10/22/18 12:34 Temperature Pulse Rate 110 H Respiratory Rate 16 Blood Pressure Pulse Oximetry Intake & Output 10/21/18 10/22/18 10/22/18 18:59 06:59 18:59 Output Total 400 / 400 1999 Balance -400 / -400 -1999 Weight 121.6 kg Output: Urine 400 / 400 Chest Tube Drainage 1999 #1 Left Lower 1999 Other: Date of Last Bowel Movement 10/20/18 10/20/18 - Constitutional mild distress - Routine HEENT Exam Head: Present: normocephalic Eye: Present: EOMI, PERRL, normal accommodation - Routine Neck Exam Present: supple - Routine Respiratory Exam Present: diminished air movement Comments: chest tube in place - Routine Cardiovascular Exam Present: tachycardia - Routine Abdominal Exam Present: soft - Routine Extremities Exam Comments: left arm and leg splinted - Routine Skin Exam Present: wounds - Routine Neurological Exam Present: alert, oriented X3 - Detailed Neurological Exam: Coma Scale Eye Opening: Spontaneous Verbal Response: Oriented Motor Response: Obey commands Travis Coma Scale Total: 15 - Routine Psychiatric Exam Present: normal affect Results 10/21/18 03:47 10/21/18 03:47 CBC 10/21/18 Range/Units 03:47 WBC 6.2 (4.0-11.0) th/mm3 RBC 3.38 L (4.50-5.90) mil/mm3 Hgb 9.1 L (13.0-17.0) gm/dL Hct 27.6 L (39.0-51.0) % Plt Count 530 H (150-450) th/mm3 Neut # (Auto) 4.7 (1.8-7.7) th/mm3 Lymph # (Auto) 0.9 L (1.0-4.8) th/mm3 Hendry # (Auto) 0.6 (0.0-0.9) th/mm3 Eos # (Auto) 0.1 (0.0-0.4) th/mm3 Baso # (Auto) 0.0 (0.0-0.2) th/mm3 Comprehensive Metabolic Panel 10/21/18 Range/Units 03:47 Sodium 141 (136-145) meq/L Potassium 4.1 (3.5-5.1) meq/L Chloride 104 (98-107) meq/L Carbon Dioxide 30.0 (21.0-32.0) meq/L BUN 12 (7-18) mg/dL Creatinine 1.08 (0.60-1.30) mg/dL Calcium 8.4 L (8.5-10.1) mg/dL Intake and Output 10/21/18 10/22/18 10/22/18 22:59 06:59 14:59 Output Total 400 / 400 1999 Balance -400 / -400 -1999 Output: Urine 400 / 400 Chest Tube Drainage 1999 #1 Left Lower 1999 Other: Date of Last Bowel Movement 10/20/18 10/20/18 Weight 121.6 kg - Imaging and Cardiology Imaging: Impressions Chest CT 10/21/18 15:19 CONCLUSION: 1. Large left effusion and moderate right effusion both of which have increased in size since October 15 examination. 2. Persistent stable large pericardial effusion. 3. Compressive atelectasis in the lungs, left greater than right. Chest Tube Insertion 10/22/18 06:00 CONCLUSION: 1. Uncomplicated chest tube placement as above. Assessment and Plan - Plan Assessment Pericardial Effusion Pleural Effusion Tachycardia Anemia Plan Patient having midsternal chest pain related to the sternal fx, reports that his pain is improving. Patient currently SR-ST on monitor. Last Limited 2D echo 10/20 with no evidence of hemodynamic compromise to his pericardial effusion. Lovenox reduced to once daily to avoid further progression of his traumatic pericardial effusion. Continue to monitor patient on telemetry. Continue to monitor Hbg, pt was transfused 1 unit PRBC's on 10/18. Continue to increase activity as patient tolerates. Pleural effusion, chest tube in place. Patient is stable from a cardiac standpoint, we will be available to see the patient on an as-needed basis. He will need to follow-up with Dr. Marlow once discharged. The patient was seen and evaluated by Dr. Mahoney who participated in care management and decision making. The exam, history, and the medical decision-making described in the above note were completed with the assistance of the mid-level provider. I reviewed and agree with the findings presented. I attest that I had a [id number] encounter with the patient on the same day, and personally performed and documented my assessment and findings in the medical record. Doing better will sign off. Discussed Condition With: Dr. Mahoney
--- NOTE | 2018-10-22 15:24 | ECHRPT ---
Indication: EFFUSION CONCLUSIONS Normal left ventricular size. Wall thickness is normal. The left ventricular systolic function is normal with an estimated ejection fraction in the range of 55-60%. No regional wall motion abnormalities. There is a small pericardial effusion present. 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 A left sided pleural effusion is present. BP: / HR: Rhythm: Sinus MEASUREMENTS (Male / Female) Normal Values Technical Quality:Fair, Technically difficult stud y 2D ECHO LV Diastolic Diameter PLAX 4.4 cm 4.2 - 5.9 / 3.9 - 5.3 cm LV Systolic Diameter PLAX 3.4 cm IVS Diastolic Thickness 1.1 cm 0.6 - 1.0 / 0.6 - 0.9 cm LVPW Diastolic Thickness 1.1 cm 0.6 - 1.0 / 0.6 - 0.9 cm LV Relative Wall Thickness 0.5 RV Internal Dim ED PLAX 2.6 cm FINDINGS LEFT VENTRICLE Normal left ventricular size. Wall thickness is normal. The left ventricular systolic function is normal with an estimated ejection fraction in the range of 55-60%. RIGHT VENTRICLE Normal right ventricular size and systolic function. LEFT ATRIUM The left atrial size is normal. RIGHT ATRIUM The right atrial size is normal. ATRIAL SEPTUM Normal atrial septal thickness without atrial level shunting by limited color doppler interrogation. AORTA The aortic root and proximal ascending aorta are normal in size on limited imaging. MITRAL VALVE Structurally normal mitral valve. No mitral valve stenosis or regurgitation. AORTIC VALVE Trileaflet aortic valve. No aortic valve stenosis or regurgitation. TRICUSPID VALVE Structurally normal tricuspid valve. No tricuspid valve stenosis or regurgitation. PULMONARY VALVE The pulmonary valve is not well visualized. VESSELS The inferior vena cava is normal in size. PERICARDIUM There is a small pericardial effusion present. The pericardial effusion is primarily located posteriorly. A left sided pleural effusion is present. Justyn Mohan MD (Electronically Signed) Final Date:22 October 2018 15:24
[2018-10-22] MEDS: Famotidine 20 MG Tablet PO SCH (20:24)
[2018-10-23 03:43] LABS: Baso % (Auto) 0.4 % (0.0-2.0); Eos # (Auto) 0.2 th/mm3 (0.0-0.4); Hematocrit 28.5 % (39.0-51.0); Hemoglobin 9.3 gm/dL (13.0-17.0); Lymph % (Auto) 16.8 % (9.0-44.0); Mean Corpuscular HGB Conc 32.7 % (32.0-36.0); Mean Corpuscular Hemoglobin 26.8 pg (27.0-34.0); Mean Corpuscular Volume 82.1 fL (80.0-100.0); Mean Platelet Volume 7.4 fL (7.0-11.0); Mono # (Auto) 0.6 th/mm3 (0.0-0.9); Mono % (Auto) 9.6 % (0.0-8.0); Neut # (Auto) 4.4 th/mm3 (1.8-7.7); Neut % (Auto) 70.2 % (16.0-70.0); Platelet Count 489 th/mm3 (150-450); Red Blood Count 3.47 mil/mm3 (4.50-5.90); White Blood Count 6.2 th/mm3 (4.0-11.0)
[2018-10-23 04:06] LABS: Anion Gap 7 meq/L (5-15); Blood Urea Nitrogen 10 mg/dL (7-18); Calcium 7.8 mg/dL (8.5-10.1); Carbon Dioxide 28.5 meq/L (21.0-32.0); Chloride 105 meq/L (98-107); Glomerular Filtration Rate Greater Than 89 mL/min (>89); Glucose,Random 91 mg/dL (74-106); Potassium 4.2 meq/L (3.5-5.1); Sodium 140 meq/L (136-145)
[2018-10-23] MEDS: oxyCODONE/Acetaminophen 10/325 Tablet PO PRN ×3 (06:19→17:31)
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
[2018-10-23] MEDS: Lidocaine 5% Patch T-DERMAL SCH (08:49)
[2018-10-23] MEDS: Gabapentin 400 MG Capsule PO SCH ×3 (08:50→17:31)
[2018-10-23] MEDS: guaiFENesin 600 MG ER Tablet PO SCH ×2 (08:50→21:15)
[2018-10-23] MEDS: Senna/Docusate Sodium 8.6/50 MG Tablet PO SCH ×2 (08:50→21:16)
[2018-10-23] MEDS: Metoprolol Tartrate 25 MG Tablet PO SCH ×2 (08:50→21:16)
[2018-10-23] MEDS: Calcium/Vitamin D 250/125 MG Tablet PO SCH ×3 (08:50→17:31)
[2018-10-23] MEDS: Enoxaparin Inj 30 MG/0.3 ML Syringe SQ SCH (08:52)
[2018-10-23] MEDS: Verapamil SR 240 MG Tablet PO SCH (11:08)
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
[2018-10-23] MEDS: Morphine Inj 4 MG/ML Vial IV.PUSH PRN (13:14)
[2018-10-23] MEDS: Ibuprofen 600 MG Tablet PO SCH ×2 (15:12→21:15)
[2018-10-23] MEDS: Famotidine 20 MG Tablet PO SCH (21:15)
[2018-10-24] MEDS: Ibuprofen 600 MG Tablet PO SCH ×3 (06:35→21:43)
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
[2018-10-24] MEDS: oxyCODONE/Acetaminophen 10/325 Tablet PO PRN ×3 (08:14→19:48)
[2018-10-24] MEDS: guaiFENesin 600 MG ER Tablet PO SCH ×2 (08:14→20:37)
[2018-10-24] MEDS: Enoxaparin Inj 30 MG/0.3 ML Syringe SQ SCH (08:14)
[2018-10-24] MEDS: Lidocaine 5% Patch T-DERMAL SCH (08:14)
[2018-10-24] MEDS: Calcium/Vitamin D 250/125 MG Tablet PO SCH ×3 (08:15→19:48)
[2018-10-24] MEDS: Senna/Docusate Sodium 8.6/50 MG Tablet PO SCH ×2 (08:15→20:38)
[2018-10-24] MEDS: Metoprolol Tartrate 25 MG Tablet PO SCH ×2 (08:15→20:37)
[2018-10-24] MEDS: Gabapentin 400 MG Capsule PO SCH ×3 (08:15→19:48)
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
[2018-10-24] MEDS: Morphine Inj 4 MG/ML Vial IV.PUSH PRN (11:41)
[2018-10-24] MEDS: Verapamil SR 240 MG Tablet PO SCH (13:38)
[2018-10-24] MEDS: Famotidine 20 MG Tablet PO SCH (20:37)
--- NOTE | 2018-10-25 05:44 | XR ---
EXAM DATE: 10/25/2018 5:35 AM EST AGE/SEX: 52 years / Male INDICATIONS: Respiratory disease. Follow-up pulmonary edema. CLINICAL DATA: This is the patient's subsequent encounter. Patient reports that signs and symptoms h ave been present for 1 month and indicates a pain score of 3/10. MEDICAL/SURGICAL HISTORY: . Left arm and left ankle fracture. Chest tube, left. COMPARISON: [facility], CHEST 1V SINGLE AP, 10/24/2018. . FINDINGS: A single AP erect portable view of the chest was obtained and again demonstrates abnormal hazy opacit y in the perihilar regions and both lung bases. This is not significantly changed. The heart size rem ains mildly prominent. Both costophrenic angles may be mildly blunted. The bony thorax remains intact . CONCLUSION: No significant change. Electronically signed by: Dakota Calderón MD Board Certified Radiologist 10/25/2018 5:43 AM EST
[2018-10-25] MEDS: Ibuprofen 600 MG Tablet PO SCH ×3 (06:20→21:31)
[2018-10-25] MEDS: Enoxaparin Inj 30 MG/0.3 ML Syringe SQ SCH (09:12)
[2018-10-25] MEDS: Gabapentin 400 MG Capsule PO SCH ×3 (09:13→18:20)
[2018-10-25] MEDS: Metoprolol Tartrate 25 MG Tablet PO SCH ×2 (09:13→21:32)
[2018-10-25] MEDS: Senna/Docusate Sodium 8.6/50 MG Tablet PO SCH ×2 (09:13→21:32)
[2018-10-25] MEDS: guaiFENesin 600 MG ER Tablet PO SCH ×2 (09:13→21:32)
[2018-10-25] MEDS: Calcium/Vitamin D 250/125 MG Tablet PO SCH ×3 (09:13→18:05)
[2018-10-25] MEDS: Lidocaine 5% Patch T-DERMAL SCH (09:14)
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
[2018-10-25] MEDS: Verapamil SR 240 MG Tablet PO SCH (12:58)
[2018-10-25] MEDS: oxyCODONE/Acetaminophen 10/325 Tablet PO PRN (18:05)
[2018-10-25] MEDS: Famotidine 20 MG Tablet PO SCH (21:31)
[2018-10-25] MEDS: Acetaminophen 325 MG Tablet PO PRN (21:32)
[2018-10-26] MEDS: Ibuprofen 600 MG Tablet PO SCH ×3 (05:34→22:51)
--- NOTE | 2018-10-26 09:20 | XR ---
EXAM DATE: 10/26/2018 9:07 AM EST AGE/SEX: 52 years / Male INDICATIONS: Paracardial effusion. CLINICAL DATA: This is the patient's subsequent encounter. Patient reports that signs and symptoms h ave been present for 2 days and indicates a pain score of 0/10. MEDICAL/SURGICAL HISTORY: . Left arm and left ankle fracture. Chest tube, left. . COMPARISON: [facility], CHEST 1V SINGLE AP, 10/25/2018. . FINDINGS: There is a small left pleural effusion. Borderline cardiomegaly seen. Consolidation right lung base m edially may be present. CONCLUSION: Small left pleural effusion and possible consolidation right lung base medially. Electronically signed by: Marlon Hodge MD Board Certified Radiologist 10/26/2018 9:18 AM EST
[2018-10-26] MEDS: Lidocaine 5% Patch T-DERMAL SCH (11:17)
[2018-10-26] MEDS: Metoprolol Tartrate 25 MG Tablet PO SCH ×2 (11:18→22:50)
[2018-10-26] MEDS: Gabapentin 400 MG Capsule PO SCH ×3 (11:18→18:25)
[2018-10-26] MEDS: Calcium/Vitamin D 250/125 MG Tablet PO SCH ×3 (11:23→18:25)
[2018-10-26] MEDS: Enoxaparin Inj 30 MG/0.3 ML Syringe SQ SCH (11:24)
[2018-10-26] MEDS: Acetaminophen 325 MG Tablet PO PRN (11:35)
[2018-10-26] MEDS: guaiFENesin 600 MG ER Tablet PO SCH ×2 (11:38→22:51)
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
[2018-10-26] MEDS: Senna/Docusate Sodium 8.6/50 MG Tablet PO SCH ×2 (12:24→22:51)
[2018-10-26] MEDS: Verapamil SR 240 MG Tablet PO SCH (12:58)
[2018-10-26] MEDS: oxyCODONE/Acetaminophen 10/325 Tablet PO PRN (16:07)
[2018-10-26] MEDS: Famotidine 20 MG Tablet PO SCH (22:51)
[2018-10-27] MEDS: Ibuprofen 600 MG Tablet PO SCH ×3 (05:34→22:26)
--- NOTE | 2018-10-27 06:00 | XR ---
EXAM DATE: 10/27/2018 5:50 AM EST AGE/SEX: 52 years / Male INDICATIONS: Follow up trauma. Short of breath. CLINICAL DATA: This is the patient's subsequent encounter. Patient reports that signs and symptoms h ave been present for 1 month and indicates a pain score of 1/10. MEDICAL/SURGICAL HISTORY: . left arm and ankle fractures . left chest tube placed and removed COMPARISON: [facility], CHEST 1V SINGLE AP, 10/26/2018. . FINDINGS: A single AP view of the chest demonstrates a small left pleural effusion with left basilar consolidat ion. The basilar consolidation on the left is new. Right basilar consolidations more pronounced. A ti ny right effusion seen. This is stable. Heart is normal in size. No pneumothorax. CONCLUSION: Worsening consolidation of the right lung base with developing consolidation of the left lung base. S table small effusions bilaterally. Electronically signed by: Savage Urbina MD Board Certified Radiologist 10/27/2018 5:59 AM EST
[2018-10-27] MEDS: oxyCODONE/Acetaminophen 10/325 Tablet PO PRN ×3 (08:53→22:25)
[2018-10-27] MEDS: Enoxaparin Inj 30 MG/0.3 ML Syringe SQ SCH (08:54)
[2018-10-27] MEDS: guaiFENesin 600 MG ER Tablet PO SCH ×2 (08:54→22:25)
[2018-10-27] MEDS: Calcium/Vitamin D 250/125 MG Tablet PO SCH ×3 (08:54→17:39)
[2018-10-27] MEDS: Senna/Docusate Sodium 8.6/50 MG Tablet PO SCH ×2 (08:54→22:33)
[2018-10-27] MEDS: Gabapentin 400 MG Capsule PO SCH ×3 (08:54→17:39)
[2018-10-27] MEDS: Lidocaine 5% Patch T-DERMAL SCH (08:54)
[2018-10-27] MEDS: Metoprolol Tartrate 25 MG Tablet PO SCH ×2 (08:54→22:34)
[2018-10-27] MEDS: guaiFENesin/Dextromethorphan 200 MG/20 MG 10 ML UDC PO PRN ×2 (12:37→22:26)
[2018-10-27] MEDS: Verapamil SR 240 MG Tablet PO SCH (12:38)
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
[2018-10-27 15:26] VITALS: RESP 20
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
[2018-10-27] MEDS: Famotidine 20 MG Tablet PO SCH (22:25)
[2018-10-28] MEDS: Ibuprofen 600 MG Tablet PO SCH (08:13)
[2018-10-28 08:31] VITALS: BP 130/81; PULSE 108; TEMP 98
[2018-10-28] MEDS: Metoprolol Tartrate 25 MG Tablet PO SCH (10:16)
[2018-10-28] MEDS: Enoxaparin Inj 30 MG/0.3 ML Syringe SQ SCH (10:16)
[2018-10-28] MEDS: Lidocaine 5% Patch T-DERMAL SCH (10:16)
[2018-10-28] MEDS: guaiFENesin/Dextromethorphan 200 MG/20 MG 10 ML UDC PO PRN (10:16)
[2018-10-28] MEDS: Gabapentin 400 MG Capsule PO SCH (10:17)
[2018-10-28] MEDS: Calcium/Vitamin D 250/125 MG Tablet PO SCH (10:17)
[2018-10-28] MEDS: guaiFENesin 600 MG ER Tablet PO SCH (10:17)
[2018-10-28] MEDS: Senna/Docusate Sodium 8.6/50 MG Tablet PO SCH (10:18)
[2018-10-28 10:39] VITALS: O2SAT 94
--- NOTE | 2018-10-28 12:59 | ECHRPT ---
Indication: EFFUSION CONCLUSIONS Normal left ventricular size. Mild concentric left ventricular hypertrophy. The left ventricular systolic function is normal with an estimated ejection fraction in the range of 55-60%. Bilateral pleural effusion. No significant pericardial effusion. BP: / HR: Rhythm: Sinus MEASUREMENTS (Male / Female) Normal Values Technical Quality:Technically difficult study 2D ECHO LV Diastolic Diameter PLAX 4.0 cm 4.2 - 5.9 / 3.9 - 5.3 cm LV Systolic Diameter PLAX 3.0 cm IVS Diastolic Thickness 1.3 cm 0.6 - 1.0 / 0.6 - 0.9 cm LVPW Diastolic Thickness 1.3 cm 0.6 - 1.0 / 0.6 - 0.9 cm LV Relative Wall Thickness 0.6 RV Internal Dim ED PLAX 2.9 cm LVOT Diameter 2.0 cm Aortic Root Diameter 4.1 cm M-MODE AV Cusp Separation MM 2.4 cm DOPPLER LV E' Lateral Velocity 4.9 cm/s LV E' Septal Velocity 10.5 cm/s FINDINGS LEFT VENTRICLE Normal left ventricular size. Mild concentric left ventricular hypertrophy. The left ventricular systolic function is normal with an estimated ejection fraction in the range of 55-60%. RIGHT VENTRICLE Normal right ventricular size and systolic function. PERICARDIUM Bilateral pleural effusion. No significant pericardial effusion. Jones Marlow MD, FACC (Electronically Signed) Final Date:28 October 2018 12:58
--- NOTE | 2018-10-28 13:44 | P.PNCA ---
Subjective Interval history: Late entry. Patient evaluated this morning. Patient denies any pressure, palpitations, dizziness, edema or SOB. Patient does continue to complain of midsternal chest pain that increases with deep breathing. Medications and Allergies Allergies Allergy/AdvReac Type Severity Reaction Status Date / Time No Known Allergies Allergy Verified 10/28/18 14:14 Physical Exam Vital signs: Vital Signs 10/27/18 14:50 10/27/18 18:21 10/27/18 20:00 Temperature 97.7 F 98.4 F Pulse Rate 106 H 98 H 89 Respiratory Rate 20 20 Blood Pressure 104/59 L 102/59 L Pulse Oximetry 95 94 L 10/27/18 21:14 10/28/18 00:00 10/28/18 04:00 Temperature 98.1 F 97.5 F L Pulse Rate 94 H 95 H Respiratory Rate 20 20 Blood Pressure 111/63 130/69 Pulse Oximetry 95 93 L 97 10/28/18 07:30 10/28/18 10:39 Temperature 98.0 F Pulse Rate 108 H Respiratory Rate 20 Blood Pressure 130/81 Pulse Oximetry 98 94 L Intake & Output 10/27/18 10/28/18 10/28/18 18:59 06:59 18:59 Output Total 575 / 575 550 / 550 Balance -575 / -575 -550 / -550 Weight 119.69 kg Output: Urine 575 / 575 550 / 550 Other: # Bowel Movements 1 - Constitutional no acute distress - Routine HEENT Exam Head: Present: normocephalic Eye: Present: PERRL ENT: Present: mucous membranes moist - Routine Neck Exam Present: full ROM - Routine Respiratory Exam Present: crackles - Routine Cardiovascular Exam Present: S1, S2. Absent: murmur, gallop, rubs - Routine Abdominal Exam Present: normoactive bowel sounds - Routine Extremities Exam Present: full ROM, pulses intact, normal capillary refill. Absent: cyanosis, clubbing, edema Comments: left leg and left arm in a cast. - Routine Skin Exam Present: intact. Absent: cyanosis, erythema - Routine Neurological Exam Present: oriented X3 - Detailed Neurological Exam: Coma Scale Eye Opening: Spontaneous Verbal Response: Oriented Motor Response: Obey commands Travis Coma Scale Total: 15 - Routine Psychiatric Exam Present: normal affect Results 10/23/18 02:33 10/23/18 02:33 Intake and Output 10/27/18 10/28/18 10/28/18 22:59 06:59 14:59 Output Total 250 / 250 550 / 550 Balance -250 / -250 -550 / -550 Output: Urine 250 / 250 550 / 550 Other: # Bowel Movements 1 Weight 119.69 kg - Imaging and Cardiology Imaging: Impressions Chest X-Ray 10/27/18 06:00 CONCLUSION: Worsening consolidation of the right lung base with developing consolidation of the left lung base. Stable small effusions bilaterally. Assessment and Plan - Assessment (1) Pericardial effusion without cardiac tamponade Code(s): I31.3 - Pericardial effusion (noninflammatory) Status: Acute (2) Hypertension Code(s): I10 - Essential (primary) hypertension Status: Chronic (3) Open fracture of left forearm Code(s): S52.92XB - Unspecified fracture of left forearm, initial encounter for open fracture type I or II Status: Acute Onset Date: ~09/26/18 (4) Fracture of left tibia and fibula Code(s): S82.202A - Unspecified fracture of shaft of left tibia, initial encounter for closed fracture; S82.402A - Unspecified fracture of shaft of left fibula, initial encounter for closed fracture Status: Acute Onset Date: ~05/07 (5) Sternal fracture Code(s): S22.20XA - Unspecified fracture of sternum, initial encounter for closed fracture Status: Acute Onset Date: ~09/26/18 (6) Lumbar transverse process fracture Code(s): S32.009A - Unspecified fracture of unspecified lumbar vertebra, initial encounter for closed fracture Status: Acute Onset Date: ~09/26/18 - Plan Limited 2D echo shows no pericardial effusion. No new cardiac issues at this time, we will continue with current treatment plan. Continue to increase patient activity as tolerated. Patient can be cleared for discharge from a cardiology standpoint. The patient was seen and evaluated by Dr. Marlow who participated in care, management and decision making. - Attending Attestation Patient seen and examined. I reviewed and agree with the evaluation and plan as presented. I reviewed his f/u echo; there is no evidence of pericardial effusion at this time. DC home as planned. (2) Hypertension Qualifiers: Hypertension type: essential hypertension Qualified Code(s): I10 - Essential (primary) hypertension (3) Open fracture of left forearm Qualifiers: Encounter type: subsequent encounter Fracture healing: with routine healing (4) Fracture of left tibia and fibula Qualifiers: Encounter type: subsequent encounter Fracture type: open Fracture healing: with routine healing (5) Sternal fracture Qualifiers: Encounter type: subsequent encounter Sternal location: body of sternum Fracture type: closed Fracture healing: with routine healing Qualified Code(s) : S22.22XD - Fracture of body of sternum, subsequent encounter for fracture with routine healing (6) Lumbar transverse process fracture Qualifiers: Encounter type: subsequent encounter Fracture type: closed Fracture healing : with routine healing Qualified Code(s): S32.009D - Unspecified fracture of unspecified lumbar vertebra, subsequent encounter for fracture with routine healing
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
== END 2018-10-28 13:08 | DRG 314 ==
LOC: N03 19:01 → N05 10-16 12:15
PROVIDERS: ADMIT Surgery; ATTEND Surgery
CPT/HCPCS: 32555; 32557; 36430; 71010; 71045; 71260; 76937; 80048; 82272; 85014; 85018; 85025; 85027; 86850; 86900; 86901; 86923; 87641; 93308; 94150; 97110; 97162; 97166; 97530; 97535; 99145; 99152; 99153; C1729; C1769; J1650; J1940; J2250; J2270; J3010; J7050; P9016; Q9967